=== PATIENT | female | born 1990 | race Caucasian/White ===

== ENCOUNTER 2016-09-11 14:08 | Emergency (ER) | payer OTHER ==
[~2016-09-11] VITALS: Ht 160 cm; Wt 108.1 kg
[~2016-09-11 14:08] MED LIST: MXLUNK
[2016-09-11 14:17] VITALS: Ht 160 cm; Wt 108.1 kg
[2016-09-11] MEDS ORDERED: AMOX875T PO (15:22)
[2016-09-11 15:41] VITALS: BP 110/80; PULSE 72; TEMP 36.8; O2SAT 98
--- NOTE | 2016-09-11 16:00 | EMERGENCY ROOM VISIT NOTE ---
History First contact with patient: 15:00 Chief Complaint: FEVER Stated Complaint: FEVER, SORETHROAT, COUGH-11 WKS. History of Present Illness The patient is a 26 year old female who presents to the Emergency Room with complaints of persistent productive cough, sore throat and fever. The patient reports that she developed a cold 2 weeks ago. She had sinus congestion and runny nose at that time. The symptoms have improved, but the cough has persisted and now worsened. The patient does report a history of frequent bronchitis. She denies history of seasonal allergies or asthma. She denies tobacco use. The patient is currently 11 weeks . She moved to the area in April, and has applied for medical assistance. She currently does not have a PCP. She has [facility]. She denies any chest pain or shortness of breath. Review of Systems 10 system review was performed and was negative except for pertinent positives and negatives as indicated in history of present illness Social History Smoking Status: Never Smoker Current/Historical Medications Scheduled Amoxicillin & Pot Clavulanate (Augmentin 875-125 mg), 1 TAB PO BID Allergies Coded Allergies: Pertussis Vaccine (Unverified Allergy, Mild, "high fever", 09/11/16) Physical Exam Vital Signs Date Time Temp Pulse Resp B/P (MAP) Pulse Ox O2 Delivery O2 Flow Rate FiO2 09/11/16 15:41 36.8 72 18 110/80 98 09/11/16 14:17 36.8 87 18 148/84 100 Room Air Pain Rating (0-10): 0 Physical Exam CONSTITUTIONAL: Healthy and well nourished. Patient does not appear in any acute distress. She had no cough during my exam. HEENT: Normocephalic, atraumatic. Pupils equal, round and reactive. Ears and nares are clear with no evidence for middle ear effusion or air-fluid levels. Bony landmarks and light reflex are present bilaterally. No rhinorrhea. OROPHARYNX: No tonsillar hypertrophy, exudates or postnasal drip. NECK: Full active range of motion without discomfort. RESPIRATORY: Clear to auscultation bilaterally with no wheezing, crackles, rhonchi or stridor. CARDIOVASCULAR: Regular rate and rhythm with no murmurs, rubs or gallops. GASTROINTESTINAL: Bowel sounds present in all quadrants. Soft and nontender to palpation. MUSCULOSKELETAL: Full range of motion of all joints without discomfort. INTEGUMENTARY: No rash or other significant dermatologic conditions noted. NEUROLOGIC: No focal neurologic deficits noted. Medical Decision & Procedures ED Course Patient history and physical exam were performed. Nurse's notes were reviewed. Vital signs were reviewed. The patient is currently afebrile and not tachycardic. Blood pressure is slightly elevated at 148/84. O2 saturation is 100% on room air. The patient does not appear in any acute respiratory distress. Given that the patient has been sick for the past 2 weeks, and is now worsening with fever, I did elect to treat empirically with Augmentin antibiotics. I do not feel that radiation exposure is warranted at this time. She was encouraged to take Tylenol as needed for fever. I did encourage her to contact the medical assistance office to see if they can expedite her insurance approval. In the meantime, she was encouraged to follow-up with the [facility] office in [place] near where she lives. She is welcome to return to the emergency department for any progressively worsening symptoms. I also encouraged her to find a local FLESHING MACHINE OPERATOR as well for further management. The patient was happy with plan of care, and voiced understanding of all discharge instructions. Medical Decision Impression Primary Impression: Bronchitis Additional Impression: Departure Information Dispostion Home / Self-Care Condition GOOD Prescriptions Amoxicillin & Pot Clavulanate (Augmentin 875-125 mg) 1 Tab Tab 1 TAB PO BID for 10 Days, #20 TAB Prov: Michael Xie PA 09/11/16 Referrals Uriel Delcid M.D. Hardyk, Angela K., M.D. Forms HOME CARE DOCUMENTATION FORM, IMPORTANT VISIT INFORMATION Patient Instructions My [employer] Additional Instructions Complete all Augmentin antibiotics as prescribed. Tylenol as needed for pain or fever. Follow-up with [facility] (Dr. Delcid) if symptoms are not improving within the next week. Call the medical assistance office to see if they can expedite your authorization. Also suggest follow-up with FLESHING MACHINE OPERATOR (Dr. Abreu) for further predelivery management and planning. Problem Qualifiers Additional Impression: Weeks of gestation: 11 weeks Qualified Codes: Z3A.11 - 11 weeks gestation of
== END 2016-09-11 15:43 | disposition home or self-care (01) ==
LOC: C.EDB 14:10 → C.EDA 15:43
DX: O26.891 Other specified pregnancy related conditions, first trimester (principal); J40 Bronchitis, not specified as acute or chronic; Z88.8 Allergy status to other drugs, medicaments and biological substances

== ENCOUNTER 2016-09-23 11:34 | Emergency (ER) | payer OTHER ==
[~2016-09-23] VITALS: Ht 160 cm; Wt 106.0 kg
[2016-09-23 11:36] VITALS: TEMP 36.7; Ht 160 cm; Wt 106.0 kg
[2016-09-23] MEDS ORDERED: SODIUM CHLORIDE 0.9% 1000ML 1,000 ML IV STA (12:07)
[2016-09-23] MEDS ORDERED: METOCLOPRAMIDE HCL INJ 5 MG/ML 2 ML VIAL IV STA (12:27)
[2016-09-23] MEDS ORDERED: DiphenhydrAMINE HCL 50 MG/ML VIAL IV STA (12:27)
[2016-09-23 12:35] LABS: BASO % 0.2 %; BASO ABS # 0.02 K/uL (0-0.2); COMPLETE YES; EOS % 0.4 %; HEMATOCRIT 37.5 % (37-47); IG% 0.3 %; LYMPH % 11.3 %; LYMPH ABS # 1.28 K/uL (1.2-3.4); MEAN CELL VOLUME 83.9 fL (80-100); MEAN CORPUSCULAR HEMOGLOBIN 28.6 pg (25-34); MEAN CORPUSCULAR HGB CONC 34.1 g/dl (32-36); MEAN PLATELET VOLUME 9.2 fL (7.4-10.4); MONO % 2.9 %; NEUT % 84.9 %; PLATELET COUNT 334 K/uL (130-400); RED BLOOD COUNT 4.47 M/uL (4.2-5.4); WHITE BLOOD COUNT 11.28 K/uL (4.8-10.8)
[2016-09-23 12:42] LABS: URINE APPEARANCE CLEAR (CLEAR); URINE BILIRUBIN NEG (NEG); URINE COLOR YELLOW; URINE NITRITE NEG (NEG); URINE PH 6.5 (4.5-7.5); URINE SPECIFIC GRAVITY 1.016 (1.000-1.030); UROBILINOGEN NEG (NEG); ZZUR CULT IF INDIC CLEAN CATCH NO
[2016-09-23 12:46] LABS: BUN/CREATININE RATIO 11.5 (10-20); CALCIUM 8.4 mg/dl (8.5-10.1); CREATININE 0.59 mg/dl (0.60-1.20); POTASSIUM 3.7 mmol/L (3.5-5.1)
[2016-09-23 12:49] LABS: ALB/GLOB RATIO 0.8 (0.9-2)
[2016-09-23 12:49] LABS: MANUAL MICROSCOPIC REQUIRED? NO; REVIEW REQ? NO
--- NOTE | 2016-09-23 12:56 | EMERGENCY ROOM VISIT NOTE ---
History First contact with patient: 11:56 Chief Complaint: HEADACHE Stated Complaint: VOMITING, LIGHTHEADED, MIGRAINE History of Present Illness The patient is a 26 year old female who presents to the Emergency Room with complaints of migraine. The patient reports a history of migraines for approximately the last 10 years. She has been evaluated for them in the past. She typically would take Maxalt but has been told to discontinue the Maxalt because she is . She is approximately 12 weeks . She reports increasing frequency of the migraines. She states that usually the migraine would resolve in 24 hours but this has persisted for 48 hours. She rates her discomfort a 7/10. The patient was seen here a few weeks ago for bronchitis and was treated with Augmentin. She states those symptoms have completely resolved. She denies any fever. She denies any neck stiffness but reports some neck discomfort which is typical with her migraines. She denies any pain in her chest or trouble breathing. She denies any abdominal pain, cramping, vaginal bleeding or vaginal discharge. She denies any dizziness, weakness, numbness or tingling in the extremities. The patient states this feels very typical of her migraines. The patient has had a ultrasound at approximately 8 weeks. She [facility]ACH[facility]PER[facility]. Review of Systems A 10 system review of systems was completed with positives and pertinent negatives listed in the HPI. Past Medical/Surgical History Medical Problems: (1) Migraine Social History Smoking Status: Never Smoker Housing Status: lives with family Current/Historical Medications Scheduled Ondasetron Odt (Zofran Odt), 4 MG SL Q6H Scheduled PRN Acetamin/Butalbital/Caffeine (Fioricet), 1 TAB PO Q4H PRN for Migraine Allergies Coded Allergies: Pertussis Vaccine (Unverified Allergy, Mild, "high fever", 09/23/16) Physical Exam Vital Signs Date Time Temp Pulse Resp B/P (MAP) Pulse Ox O2 Delivery O2 Flow Rate FiO2 09/23/16 14:05 88 16 118/76 98 09/23/16 13:06 84 16 106/61 96 Room Air 09/23/16 11:36 36.7 106 16 121/69 97 Physical Exam VITALS: Vitals are noted on the nurse's note and reviewed by myself. Vital signs stable. The patient is afebrile. GENERAL: This is a 26-year-old female, in no acute distress, nondiaphoretic, well-developed well-nourished. SKIN: The skin was without rashes, erythema, edema, or bruising. There is no tenting of the skin. Capillary reflex less than 2 seconds. HEAD: Normocephalic atraumatic. EARS: External auditory canals clear, tympanic membranes pearly luna without erythema or effusion bilaterally. EYES: Pupils equal round and reactive to light and accommodation. Conjunctivae without injection, sclerae without icterus. Extraocular movements intact. NOSE: Patent, turbinates without inflammation or discharge. No sinus tenderness. MOUTH: Mucous membranes moist. Tonsils are not enlarged. Pharynx without erythema or exudate. Uvula midline. Airway patent. Tongue does not deviate. NECK: Supple without nuchal rigidity. No lymphadenopathy. No thyromegaly. Cervical spine is nontender. No JVD. HEART: Regular rate and rhythm without murmurs gallops or rubs. LUNGS: Clear to auscultation bilaterally without wheezes, rales or retractions or accessory muscle use. ABDOMEN: Positive bowel sounds x 4. Soft, nontender, without masses or organomegaly. MUSCULOSKELETAL: No muscle atrophy, erythema, or edema noted. Full range of motion without joint tenderness in all extremities. No tenderness to palpation. Normal gait. Strength 5/5 throughout. NEURO: Patient was alert and oriented to person place and time. Cranial nerves II through XII grossly intact. Negative pronator drift. No focal neurological deficits. Medical Decision & Procedures Laboratory Results 09/23/16 12:18 Red Blood Count 4.47, Mean Corpuscular Volume 83.9, Mean Corpuscular Hemoglobin 28.6, Mean Corpuscular Hemoglobin Concent 34.1, Mean Platelet Volume 9.2, Neutrophils (%) (Auto) 84.9, Lymphocytes (%) (Auto) 11.3, Monocytes (%) (Auto) 2.9, Eosinophils (%) (Auto) 0.4, Basophils (%) (Auto) 0.2, Neutrophils # (Auto) 9.58, Lymphocytes # (Auto) 1.28, Monocytes # (Auto) 0.33, Eosinophils # (Auto) 0.04, Basophils # (Auto) 0.02 09/23/16 12:18 Test 09/23/16 12:18 09/23/16 12:30 White Blood Count 11.28 K/uL (4.8-10.8) Red Blood Count 4.47 M/uL (4.2-5.4) Hemoglobin 12.8 g/dL (12.0-16.0) Hematocrit 37.5 % (37-47) Mean Corpuscular Volume 83.9 fL (80-100) Mean Corpuscular Hemoglobin 28.6 pg (25-34) Mean Corpuscular Hemoglobin Concent 34.1 g/dl (32-36) Platelet Count 334 K/uL (130-400) Mean Platelet Volume 9.2 fL (7.4-10.4) Neutrophils (%) (Auto) 84.9 % Lymphocytes (%) (Auto) 11.3 % Monocytes (%) (Auto) 2.9 % Eosinophils (%) (Auto) 0.4 % Basophils (%) (Auto) 0.2 % Neutrophils # (Auto) 9.58 K/uL (1.4-6.5) Lymphocytes # (Auto) 1.28 K/uL (1.2-3.4) Monocytes # (Auto) 0.33 K/uL (0.11-0.59) Eosinophils # (Auto) 0.04 K/uL (0-0.5) Basophils # (Auto) 0.02 K/uL (0-0.2) RDW Standard Deviation 40.5 fL (36.4-46.3) RDW Coefficient of Variation 13.4 % (11.5-14.5) Immature Granulocyte % (Auto) 0.3 % Immature Granulocyte # (Auto) 0.03 K/uL (0.00-0.02) Anion Gap 8.0 mmol/L (3-11) Est Creatinine Clear Calc Drug Dose 169.9 ml/min Estimated GFR () 147.6 Estimated GFR (Non- 127.4 BUN/Creatinine Ratio 11.5 (10-20) Calcium Level 8.4 mg/dl (8.5-10.1) Total Bilirubin 0.6 mg/dl (0.2-1) Aspartate Amino Transf (AST/SGOT) 17 U/L (15-37) Alanine Aminotransferase (ALT/SGPT) 27 U/L (12-78) Alkaline Phosphatase 70 U/L (45-117) Total Protein 7.2 gm/dl (6.4-8.2) Albumin 3.2 gm/dl (3.4-5.0) Globulin 4.0 gm/dl (2.5-4.0) Albumin/Globulin Ratio 0.8 (0.9-2) Urine Color YELLOW Urine Appearance CLEAR (CLEAR) Urine pH 6.5 (4.5-7.5) Urine Specific Allison 1.016 (1.000-1.030) Urine Protein NEG (NEG) Urine Glucose (UA) NEG (NEG) Urine Ketones 1+ (NEG) Urine Occult Blood NEG (NEG) Urine Nitrite NEG (NEG) Urine Bilirubin NEG (NEG) Urine Urobilinogen NEG (NEG) Urine Leukocyte Esterase NEG (NEG) Medications Administered Medications (Trade) Dose Ordered Sig/Armani Route Start Time Stop Time Status Last Admin Dose Admin Sodium Chloride 1,000 ml @ 999 mls/hr Q1H1M STAT IV 09/23/16 12:07 09/23/16 13:07 DC 09/23/16 12:22 999 MLS/HR Metoclopramide HCl (Reglan Inj) 10 mg NOW STAT IV 09/23/16 12:27 09/23/16 12:29 DC 09/23/16 12:36 10 MG Diphenhydramine HCl (Benadryl Inj) 25 mg NOW STAT IV 09/23/16 12:27 09/23/16 12:29 DC 09/23/16 12:36 25 MG Acetaminophen/ Butalbital/ Caffeine (Fioricet Tab) 1 tab NOW STAT PO 09/23/16 13:00 09/23/16 13:01 DC 09/23/16 13:05 1 TAB ED Course The patient was seen and examined. Previous visits were reviewed. The patient does not have a fever. She has a minimal leukocytosis of 11.28. She does not have any significant electrolyte abnormality. Urinalysis reveals 1+ ketones but no evidence for urinary tract infection or hematuria. The patient was given 1 L normal saline IV She was given 25 mg IV Benadryl and 10 mg IV Reglan. Her nausea improved but the headache persisted. She was then given 1 oral Fioricet with marked improvement in her pain. She was feeling well enough to be discharged home. The patient presents to the emergency department with a migraine headache. She states that this is very typical for her and feels consistent with her previous migraines. She is afebrile. She does not have any nuchal rigidity or meningismus to suggest meningitis. She was feeling much better with the above treatment. She was given prescription for Zofran and a very small prescription for Fioricet. She should follow up with neurology and her family doctor and OB/ PRINCIPAL IOS DEVELOPER. She does seem to be having increasing frequency of her migraines with the . She should return to the ER with any worsening symptoms. The case was discussed with Dr. Rubi who agrees with the assessment and treatment plan. I also discussed the choice of medications with the ED pharmacist. Medication Reconciliation: I attest that I have personally reviewed the patient' s current medication list. Blood pressure screening: The patient was found to have normal blood pressure on screening and does not require follow-up Medical Decision The differential diagnosis includes: head or neck trauma, cerebrovascular disorders, intracranial lesions, infection,transient ischemic attack (TIA), CVA , seizure, syncope, intracranial mass, intracranial bleeding and vestibular disorders, among others Impression Primary Impression: Migraine Additional Impression: Departure Information Dispostion Home / Self-Care Condition GOOD Prescriptions Acetamin/Butalbital/Caffeine (FIORICET) 1 Ea Tab 1 TAB PO Q4H Y for Migraine, #18 TAB Prov: Juliana Flores PA-C 09/23/16 Ondasetron Odt (ZOFRAN ODT) 4 Mg Tab 4 MG SL Q6H for Nausea, #6 TAB Prov: Juliana Flores PA-C 09/23/16 Referrals No Doctor, Assigned (PCP) Rozina Abreu M.D. Schaefer, Kathleen A., M.D. Forms HOME CARE DOCUMENTATION FORM, IMPORTANT VISIT INFORMATION, Work Instructions Return To Work: 2 days Patient Instructions ED Headache Migraine, My [facility] 10sec Additional Instructions Rest Zofran as prescribed, as needed for nausea Fioricet as prescribed as needed for migraine. Do not take the Fioricet more than 5 days per month Return with fevers or worsening symptoms Otherwise, follow up with DISCHARGING MACHINE OPERATOR and Neurology for further evaluation and management Problem Qualifiers
[2016-09-23] MEDS ORDERED: BUTALBITAL/ACETAMIN/CAFFEINE TAB PO STA (13:00)
[2016-09-23] MEDS ORDERED: ONDA4TAB10 SL (13:57)
[2016-09-23] MEDS ORDERED: FRCT/ PO (13:57)
[2016-09-23 14:05] VITALS: BP 118/76; PULSE 88; O2SAT 98
== END 2016-09-23 14:12 | disposition home or self-care (01) ==
LOC: C.EDB 11:35 → C.EDA 14:12
DX: G43.909 Migraine, unspecified, not intractable, without status migrainosus (principal); Z3A.08 8 weeks gestation of pregnancy

== ENCOUNTER → 2016-10-13 | Outpatient (CLI) | payer OTHER ==
[~2016-10-13] MED LIST changes: +FRCT/ PO; -MXLUNK; +ONDA4TAB10 SL
[2016-10-13 15:00] LABS: URINE APPEARANCE TURBID (CLEAR); URINE BILIRUBIN NEG (NEG); URINE COLOR YELLOW; URINE EPITHELIAL CELL AUTO >30 /lpf (0-5); URINE NITRITE NEG (NEG); URINE SPECIFIC GRAVITY 1.031 (1.000-1.030); UROBILINOGEN NEG (NEG)
[2016-10-13 15:10] LABS: MANUAL MICROSCOPIC REQUIRED? NO; REVIEW REQ? YES
== END | disposition home or self-care (01) ==
LOC: C.LABSPEC 14:16
PROVIDERS: ATTEND Obstetrics & Gynecology
DX: Z34.00 Encounter for supervision of normal first pregnancy, unspecified trimester (principal)

== ENCOUNTER → 2016-10-21 | Outpatient (CLI) | payer OTHER ==
[2016-10-21 14:45] LABS: BASO % 0.2 %; BASO ABS # 0.02 K/uL (0-0.2); COMPLETE YES; EOS % 0.7 %; HEMATOCRIT 37.1 % (37-47); IG% 0.4 %; LYMPH % 15.6 %; LYMPH ABS # 1.76 K/uL (1.2-3.4); MEAN CORPUSCULAR HEMOGLOBIN 27.5 pg (25-34); MEAN CORPUSCULAR HGB CONC 33.2 g/dl (32-36); MEAN PLATELET VOLUME 9.6 fL (7.4-10.4); MONO % 3.8 %; NEUT % 79.3 %; PLATELET COUNT 373 K/uL (130-400); RED BLOOD COUNT 4.47 M/uL (4.2-5.4)
[2016-10-21 17:00] LABS: GTGD 50 Grams
== END | disposition home or self-care (01) ==
LOC: C.LAB1850 12:42
PROVIDERS: ATTEND Obstetrics & Gynecology
DX: Z34.00 Encounter for supervision of normal first pregnancy, unspecified trimester (principal)

== ENCOUNTER → 2016-10-21 | Outpatient (CLI) | payer OTHER ==
[2016-10-23 16:23] LABS: CHLAMYDIA TRACH RNA*** NOT DETECTED (NOT DETECTED); GC (NEIS GONORRHOEAE)RNA** NOT DETECTED (NOT DETECTED)
== END | disposition home or self-care (01) ==
LOC: C.LABSPEC 15:50
PROVIDERS: ATTEND Obstetrics & Gynecology
DX: Z34.00 Encounter for supervision of normal first pregnancy, unspecified trimester (principal)

== ENCOUNTER → 2016-12-09 | Outpatient (CLI) | payer OTHER ==
[2016-12-12 12:10] LABS: HERPES SIMPLEX CULT SOURCE GENITAL-VULVAR; HERPES SIMPLEX VIRUS CULT ISOLATED (NOT ISOLATED)
== END | disposition home or self-care (01) ==
LOC: C.LABSPEC 13:57
PROVIDERS: ATTEND Obstetrics & Gynecology
DX: A60.00 Herpesviral infection of urogenital system, unspecified (principal)

== ENCOUNTER → 2016-12-09 | Outpatient (CLI) | payer OTHER ==
[2016-12-16 21:35] LABS: HERPES SIMPLEX AB IGG-2 < 0.90 INDEX (< 0.90); HSV1 AB IGM Negative (Negative); HSV2 AB IGM Negative (Negative)
== END | disposition home or self-care (01) ==
LOC: C.LAB1850 10:46
PROVIDERS: ATTEND Obstetrics & Gynecology
DX: A60.00 Herpesviral infection of urogenital system, unspecified (principal)

== ENCOUNTER → 2017-01-06 | Outpatient (CLI) | payer OTHER ==
[2017-01-06 12:00] LABS: URINE APPEARANCE CLEAR (CLEAR); URINE BILIRUBIN NEG (NEG); URINE COLOR DK YELLOW; URINE EPITHELIAL CELL AUTO >30 /lpf (0-5); URINE NITRITE NEG (NEG); URINE PH 6.5 (4.5-7.5); URINE SPECIFIC GRAVITY 1.028 (1.000-1.030); UROBILINOGEN NEG (NEG)
[2017-01-06 12:08] LABS: MANUAL MICROSCOPIC REQUIRED? NO; REVIEW REQ? NO
[2017-01-06 12:24] LABS: HEMATOCRIT 33.9 % (37-47)
[2017-01-06 14:04] LABS: GTGD 50 Grams
== END | disposition home or self-care (01) ==
LOC: C.LAB1850 10:14
PROVIDERS: ATTEND Obstetrics & Gynecology
DX: Z34.02 Encounter for supervision of normal first pregnancy, second trimester (principal)

== ENCOUNTER → 2017-03-05 | Outpatient (CLI) | payer OTHER | END | disposition home or self-care (01) | LOC: C.LABSPEC 13:28 | PROVIDERS: ATTEND Obstetrics & Gynecology | DX: Z34.03 Encounter for supervision of normal first pregnancy, third trimester (principal) ==

== ENCOUNTER 2017-03-30 20:57 | Outpatient (CLI) | payer OTHER ==
[~2017-03-30] VITALS: Ht 160 cm; Wt 115.0 kg
[2017-03-30] MEDS ORDERED: RANI150T3 PO (21:46)
[2017-03-30] MEDS ORDERED: PRENTAB26 PO (21:46)
[2017-03-30] MEDS ORDERED: ONDA4TAB46 PO (21:46)
[2017-03-30] MEDS ORDERED: VALA500T60 PO (21:46)
[2017-03-30 21:47] VITALS: Ht 160 cm; Wt 115.0 kg
--- NOTE | 2017-04-08 11:39 | EDITING REQUIRED CODING QUERY ---
DIAGNOSIS NEEDED To promote full compliance with coding requirements relating to patient care, physician participation is requested in all cases of road consultant uncertainty. Please assist us with the question(s) below: Coding Question: The patient received care in labor and delivery on 03/30/17 as noted within the record. Please document the diagnosis that is being addressed by the medication/treatment. Provider Response: DIAGNOSIS: Irregular contractions WEEKS OF GESTATION: 39 weeks Thank you for your assistance, Naomy Scott - Pensionholder Information Clerk
== END 2017-03-30 23:55 | disposition home or self-care (01) ==
LOC: C.LD 20:57 → C.OPB 20:57
PROVIDERS: ATTEND Obstetrics & Gynecology
DX: O62.9 Abnormality of forces of labor, unspecified (principal); Z3A.39 39 weeks gestation of pregnancy

== ENCOUNTER 2017-04-01 17:05 | Inpatient (IN) | payer OTHER ==
[~2017-04-01] VITALS: Ht 160 cm; Wt 114.5 kg
[~2017-04-01 17:05] MED LIST changes: -FRCT/ PO; -ONDA4TAB10 SL; +ONDA4TAB46 PO; +PRENTAB26 PO; +RANI150T3 PO; +VALA500T60 PO
[2017-04-01] MEDS ORDERED: LACTATED RINGER'S 1000ML 1,000 ML IV PRN (17:42)
[2017-04-01] MEDS ORDERED: PENICILLIN G POTASSIUM IV 6 MU in DEXTROSE 5% 250ML 250 ML IV ONE (18:00)
[2017-04-01] MEDS: LACTATED RINGER'S 1000ML 1,000 ML IV SCH ×2 (18:07→21:09)
[2017-04-01 18:10] LABS: HEMATOCRIT 35.4 % (37-47); HEMOGLOBIN 12.1 g/dL (12.0-16.0); MEAN CELL VOLUME 83.3 fL (80-100); MEAN CORPUSCULAR HEMOGLOBIN 28.5 pg (25-34); MEAN CORPUSCULAR HGB CONC 34.2 g/dl (32-36); MEAN PLATELET VOLUME 10.8 fL (7.4-10.4); PLATELET COUNT 386 K/uL (130-400); RED CELL DISTRIBUTION WIDTH CV 13.8 % (11.5-14.5); RED CELL DISTRIBUTION WIDTH SD 41.7 fL (36.4-46.3); WHITE BLOOD COUNT 21.06 K/uL (4.8-10.8)
[2017-04-01 18:39] VITALS: Ht 160 cm; Wt 114.5 kg
[2017-04-01] MEDS ORDERED: BUPIVACAINE 0.25% 30 ML VIAL ONE (19:04)
[2017-04-01] MEDS ORDERED: FENTANYL CITRATE INJ 50 MCG/1 ML 2 ML VIAL ONE (19:04)
[2017-04-01] MEDS ORDERED: FENTANYL 2MCG/ML ROPIV 1.25MG/ML 100ML BAG EPI ONE (19:04)
[2017-04-01] MEDS ORDERED: EpHEDrine SULFATE INJ 50 MG/ML AMP ONE (19:04)
[2017-04-01] MEDS ORDERED: NALOXONE HCL INJ 1 MG in SODIUM CHLORIDE 0.9% 1000ML 1,000 ML IV PRN (20:08)
[2017-04-01] MEDS ORDERED: LACTATED RINGER'S 1000ML 500 ML IV PRN ×2 (20:08→20:45)
[2017-04-01] MEDS ORDERED: NALOXONE HCL INJ 0.4 MG/1 ML VIAL/CARP IV PRN (20:15)
[2017-04-01] MEDS ORDERED: DiphenhydrAMINE HCL 50 MG/ML VIAL IV PRN (20:15)
[2017-04-01] MEDS ORDERED: NALBUPHINE HCL INJ 10 MG/ML 1ML AMP IV PRN (20:15)
[2017-04-01] MEDS: RANITIDINE IV 50 MG in DEXTROSE 5% 100ML 100 ML IV SCH (20:31)
[2017-04-01] MEDS: EpHEDrine SULFATE INJ 50 MG/ML AMP IV PRN ×2 (20:35→20:37)
[2017-04-01] MEDS ORDERED: OXYTOCIN 30 UNITS/500ML NSS IV PRN (20:45)
[2017-04-01] MEDS ORDERED: INFLUENZA ADMINISTRATION CHARGE ONE (21:15)
[2017-04-01] MEDS ORDERED: INFLUENZA VIRUS QUAD VACCINE 0.5 ML SYR IM. ONE (21:15)
[2017-04-01] MEDS: PENICILLIN G POTASSIUM IV 3 MU in DEXTROSE 5% 100ML 100 ML IV PRN (22:14)
[2017-04-01] MEDS ORDERED: CALCIUM CARBONATE 500 MG CHEWABLE PO PRN (22:15)
[2017-04-01] MEDS ORDERED: ONDANSETRON INJ 2 MG/ML 2 ML VIAL ONE (23:52)
[2017-04-02] MEDS ORDERED: ONDANSETRON INJ 2 MG/ML 2 ML VIAL IV PRN
[2017-04-02] MEDS: FENTANYL 2MCG/ML ROPIV 1.25MG/ML 100ML BAG EPI PRN ×4 (01:38→07:09)
[2017-04-02] MEDS: LACTATED RINGER'S 1000ML 1,000 ML IV SCH (01:57)
[2017-04-02] MEDS: PENICILLIN G POTASSIUM IV 3 MU in DEXTROSE 5% 100ML 100 ML IV PRN ×2 (02:06→06:11)
[2017-04-02] MEDS: RANITIDINE IV 50 MG in DEXTROSE 5% 100ML 100 ML IV SCH (04:28)
[2017-04-02] MEDS ORDERED: FENTANYL CITRATE INJ 50 MCG/1 ML 2 ML VIAL ONE (06:11)
[2017-04-02] MEDS ORDERED: ACETAMINOPHEN/CODEINE 300/30MG TAB PO PRN ×2 (08:15)
[2017-04-02] MEDS ORDERED: HYDROCORTISONE ACETATE 25 MG SUPP PR PRN (08:15)
[2017-04-02] MEDS ORDERED: ACETAMINOPHEN 325 MG TAB PO PRN (08:15)
[2017-04-02] MEDS ORDERED: OXYTOCIN 30 UNITS/500ML NSS IV PRN (08:15)
[2017-04-02] MEDS ORDERED: BENZOCAINE 20% AER SPR 82.5 GM CAN EXT PRN (08:15)
[2017-04-02] MEDS ORDERED: OXYCODONE/ACETAMINOPHEN 5-325 TAB PO PRN (08:15)
[2017-04-02] MEDS ORDERED: LANOLIN OINT EXT PRN (08:15)
[2017-04-02] MEDS ORDERED: SUPERCREAM 0.870 % 15GM JAR EXT PRN (08:15)
--- NOTE | 2017-04-02 08:28 | DELIVERY SUMMARY ---
DATE OF OPERATION: 04/02/2017 Sasha presented in labor at 4 cm. She received an epidural and ARM was then performed. She did progress to 8 cm however then things stalled out. We placed an IUPC and contractions were frequent enough but not strong enough so we started Pitocin. Estimated weight 7-8 pounds. heart rate was category 1 but had several episodes of tachycardia. She reached fully dilated, baby labored down, and then she pushed for a mere 30 minutes delivery a baby in left occiput anterior position. Thin meconium. Mouth and then nares suctioned. No nuchal cord. Baby delivered by gentle traction. No excessive force used. Live, vigorous infant. Cord clamped and cut. Cord gases obtained. Cord blood obtained. Placenta removed with gentle traction. Small second degree tear repaired with 3-0 Vicryl. Sponge and instrument counts correct. IV Pitocin started after delivery of the placenta. Hemostasis improved. Estimated blood loss 300 mL. I attest to the content of the Intraoperative Record and any orders documented therein. Any exception s are noted below.
--- NOTE | 2017-04-02 08:42 | Anesthesia Procedure Note ---
Anesthesia Epidural Removal Nt Date & Time Apr 02, 2017 at 08:42 Vital Signs Pain Intensity: 0.0 Notes Mental Status: alert / awake / arousable, participated in evaluation Nausea / Vomiting: adequately controlled Pain: adequately controlled Airway Patency, RR, SpO2: stable & adequate BP & HR: stable & adequate Hydration State: stable & adequate Neuraxial Anesthesia: was administered Anesthetic Complications: no major complications apparent, pt satisfied with anesthetic care Epidural: removed without complications, with tip intact
[2017-04-02] MEDS: IBUPROFEN 600 MG TAB PO PRN ×2 (10:29→20:12)
[2017-04-02 10:50] VITALS: BP 110/56; PULSE 107; TEMP 36.8
[2017-04-02 11:31] VITALS: BP 92/49; PULSE 90; TEMP 36.9; O2SAT 97
[2017-04-02 12:30] VITALS: BP 101/64
[2017-04-02 15:15] VITALS: BP 101/56; PULSE 90; TEMP 36.7; O2SAT 96
[2017-04-02] MEDS: RANITIDINE HCL 150 MG TAB PO SCH (20:11)
[2017-04-02] MEDS: DOCUSATE SODIUM 100 MG CAP PO SCH (20:11)
[2017-04-02 20:13] VITALS: BP 124/76; PULSE 99; TEMP 36.4; O2SAT 98
[2017-04-02 23:40] VITALS: BP 97/55; PULSE 93; TEMP 36.9; O2SAT 100
[2017-04-03] MEDS: IBUPROFEN 600 MG TAB PO PRN ×4 (04:32→23:58)
[2017-04-03 05:00] VITALS: BP 114/67; PULSE 90; TEMP 36.5
--- NOTE | 2017-04-03 06:10 | OB/GYN Progress Note ---
SET UP MACHINIST Progress Note Date of Service Apr 03, 2017. Subjective conversation w/ patient, physical exam, chart review, lab review Ambulation: ambulating normally Voiding: no voiding problems Passing Gas: Yes Diet Tolerance: Regular Diet Lochia: Moderate Feeding Type: Breast Feeding Pain: moderate pelvic pain Review of Systems Constitutional: No fever, No chills, No sweats Respiratory: No cough, No sputum Cardiac: No chest pain, No edema, No palpitations Abdomen: No pain, No nausea, No vomiting, No diarrhea Female : + dysuria Objective Vital Signs Date Time Temp Pulse Resp B/P (MAP) Pulse Ox O2 Delivery O2 Flow Rate FiO2 04/03/17 05:00 36.5 90 18 114/67 (83) Room Air 04/02/17 23:40 36.9 93 20 97/55 (69) Room Air 04/02/17 23:40 100 Room Air 04/02/17 20:13 36.4 99 18 124/76 (92) 98 Room Air 04/02/17 15:25 Room Air 04/02/17 15:15 36.7 90 20 101/56 (71) 96 Room Air 04/02/17 12:30 101/64 (76) 04/02/17 11:31 36.9 90 16 92/49 (63) 97 Room Air 04/02/17 10:50 36.8 107 16 110/56 (74) Room Air 04/02/17 10:50 Room Air Physical Exam General Appearance: WELL-APPEARING, WD/WN, NO APPARENT DISTRESS Respiratory/Chest: chest non-tender, lungs clear, normal breath sounds, no respiratory distress, no accessory muscle use Cardiovascular: regular rate, rhythm, no edema, no murmur Abdomen: normal bowel sounds, soft Fundus: Firm Extremities: no pedal edema, no calf tenderness Laboratory Results Last 24 Hours Test 04/03/17 04:44 Assessment and Plan Post- Day Number: 1 Continue Routine Care: 27 yo female G1PO now 1 delivered vaginally on 06/03 8:00. Delivered at 40.1 wks gestation Pt is GBS+/O+/RI Vitals reviewed and WNL. Hgb 12.1 on admission, today's is pending. Pt describes moderate bleeding. Changes pad after urinating, does not soak pads. Continue routine post care; 1. Monitor lochia 2. Control pain; PRN Tylenol and ibuprofen 3. Encourage ambulation 4. Support Resident Physician Supervision Note: I was present with Dr. Villeda during the history and exam. I discussed the case with the resident and agree with the findings and plan as documented in the note. Any exceptions or clarifications are listed here: doing well. eating , voiding, ambulating. ff at level of umbilicus and to the right, pt has not voided this am. ext nt calves. ppd #1, routine care. breast feeding. Documented By: Mily Araujo
[2017-04-03 07:24] LABS: HEMATOCRIT 27.1 % (37-47)
[2017-04-03] MEDS: RANITIDINE HCL 150 MG TAB PO SCH ×3 (08:00→23:58)
[2017-04-03] MEDS: DOCUSATE SODIUM 100 MG CAP PO SCH ×2 (08:29→19:57)
[2017-04-03] MEDS: PRENATAL VITAMIN TAB PO SCH (08:30)
[2017-04-03 08:35] VITALS: BP 124/81; PULSE 95; TEMP 36.6; O2SAT 98
[2017-04-03 16:00] VITALS: BP 107/64; PULSE 89; TEMP 36.8; O2SAT 98
[2017-04-03] MEDS ORDERED: NURSING VERBAL MED ORDER ONE (16:00)
[2017-04-03] MEDS ORDERED: MAGNESIUM HYDROXIDE SUSP 30 ML UDC PO PRN (16:00)
[2017-04-03] MEDS ORDERED: BISACODYL 5 MG TABEC PO SCH (20:00)
--- NOTE | 2017-04-03 20:56 | Discharge Instructions ---
Discharge Instructions Date of Service Apr 03, 2017. Admission Reason for Admission: Check Labor Discharge Discharge Diagnosis / Problem: recovery from vaginal delivery Discharge Goals Goal(s): Routine recovery after delivery Medications Continue Dispensed Medications: supercream, dermaplast, tucks, lansinoh Activity Recommendations Activity Limitations: per Instructions/Follow-up section . Instructions / Follow-Up Instructions / Follow-Up ACTIVITY RECOMMENDATIONS: * Gradual return to full activity over the next 2-3 weeks. * No lifting - nothing heavier than baby over the next 2-3 weeks. * Do not engage in vigorous exercise, sexual activity or sports until cleared by your physician. * Do not drive or operate any motorized equipment until cleared by your physician. * You may shower/bathe daily. MEDICATIONS: For discomfort or pain, you may use Acetaminophen (Tylenol), Ibuprofen (Advil), or Naproxen (Aleve) following the package directions. For constipation you may use Colace following the package directions. BREAST CARE: If you are not breast feeding: * Wear a supportive bra 24 hours a day for one to two weeks. * Avoid stimulating your breasts and nipples as much as possible during the first few weeks after delivery. * When taking a shower, have the warm water hit your back, not breasts. * When your breasts feel full, apply ice packs. Usually three to four times a day helps ease the discomfort. * Take a mild pain medication (Tylenol / Motrin) when you are uncomfortable. If breast feeding: * Use breast milk to lubricate nipples. Lansinoh cream may be used for sore nipples. You do not need to remove cream prior to breast feeding. If using a different brand of cream, check the label for directions regarding removal of cream prior to nursing. * Wear a supportive bra. * If having problems with breasts or breast feeding, call a oracle fusion consultant or your health care provider. EPISIOTOMY CARE: After delivery, if you have an episiotomy (stitches), the following steps will ease discomfort and aid healing. * For the first 24 hours after delivery, place ice packs next to your episiotomy to help reduce swelling. * After the first 24 hour-period, sitz baths, either portable or in the tub, are suggested. A shower with a shower arm sprayed over the episiotomy may be comforting. * La care should be done after each voiding and bowel movement. Squirt warm water from a plastic bottle over the perineum (region of the body between the anus and urinary opening) and pat dry. * Use Dermoplast to ease discomfort. Shake container. [place] directly over the episiotomy. Place a Tucks on a clean sanitary pad next to your episiotomy. SPECIAL CARE INSTRUCTIONS: When you are discharged from the hospital, it is important for you to follow the instructions listed below: * During the first week at home, you should be able to care for yourself and your baby. In addition, the usual light household activities are encouraged. * Limit your activities to the way you feel. Do not try to clean the house or move furniture. Be sensible. * If you actively engage in sports and have done so up until the time of your delivery, you may resume these activities as soon as you feel able. This may take up to one month or even longer. Use good judgment. * Continue to take your vitamins for at least six weeks after the of your baby. * Your diet need not be limited unless you were on a special diet before your delivery. Breast-feeding mothers need around 2500 calories per day and at least 64-80 ounces of fluid per day (8 to 10 glasses). * You should eat foods from the four major food groups. Crash diets or fad diets are to be avoided. Eating lean meats, fresh fruits and vegetables, low-fat dairy products, high fiber foods and a regular exercise program, will help you get back to your pre- weight without putting your health at risk. * Constipation is sometimes a problem after delivery. Take a mild laxative as needed. If breast feeding, Milk of Magnesia is acceptable to use. You may use a suppository or Fleets enema if no episiotomy. * A daily shower or tub bath is suggested. Be sure to thoroughly and gently dry the perineum. * A bloody vaginal discharge will usually continue until around four weeks post . A small amount of bleeding may continue for as long as six weeks. Vaginal discharge changes from the bright red bleeding after delivery to pink then brownish and finally yellowish-pink before becoming white and disappearing. * Bleeding may increase with activity. Your first period may come in 4-8 weeks. If you are breast feeding, your period may be delayed even longer. * [place] (sex) can begin whenever both you and your partner feel comfortable and do not have any form of genital infection. It is recommended that you wait at least six weeks for internal and external healing to occur. If you have questions, please talk to your health care practitioner. A condom should be used to prevent infection and . * Foreplay, gentle intercourse and lubrication is very important the first several times to prevent pain. A water-based lubricant such as K-Y jelly or Astroglide may be used. * If you have RH negative blood and your baby is RH positive, you will receive RHOGAM by injection prior to discharge. The nurse will give you a card to keep with you that has the date and place that you received RHOGAM after delivery. * During your care, you had a Rubella screen done to check for the presence of rubella antibodies in your blood. If your test was negative, you will receive a Rubella vaccine prior to discharge. This vaccine may cause a fever, soreness at the injection site and flu-like symptoms. If these symptoms persist, notify your health care practitioner. is not advised for one month after a Rubella vaccine. * Verbalizes understanding of car seat law as reviewed with patient nursing. * Car Seat hand-out given and reviewed with patient by nursing. * Shaken baby information reviewed with patient by nursing. Call you doctor if: * Heavy bleeding (saturating several pads an hour) or passing clots the size of your fist. * A fever >101 degrees F (38.3 degrees C) on two occasions four hours apart and /or chills. * Unusual pain in the pelvic or vaginal areas. * "Baby Blues" lasting longer than two weeks. If you have any questions or concerns, call your health care practitioner at . FOLLOW UP VISIT: * Please call the office at to schedule a 6 week examination. It is important you keep this appointment. It is important for you to make arrangements for either yearly or twice yearly check-ups thereafter. Current Hospital Diet Patient's current hospital diet: Regular OB Diet Discharge Diet Recommended Diet: Regular OB Diet Pending Studies Studies pending at discharge: no Medical Emergencies . Who to Call and When: Medical Emergencies: If at any time you feel your situation is an emergency, please call [phone] immediately. . Non-Emergent Contact Non-Emergency issues call your: Sewing Machine Repairer Helper . . "Provider Documentation" section prepared by Luis Enrique Villeda. . VTE Core Measure Inpt VTE Proph given/why not?: Treatment not indicated
[2017-04-03 23:50] VITALS: BP 102/67; PULSE 97; TEMP 36.9; O2SAT 98
--- NOTE | 2017-04-04 06:57 | OB/GYN Progress Note ---
[facility] Progress Note Date of Service Apr 04, 2017. Subjective conversation w/ patient, physical exam, chart review, lab review Ambulation: ambulating normally Voiding: no voiding problems Passing Gas: Yes Diet Tolerance: Regular Diet Lochia: Small Feeding Type: Breast Feeding Review of Systems Constitutional: No fever, No chills, No sweats Respiratory: No cough, No shortness of breath Cardiac: No chest pain, No palpitations Abdomen: No pain, No nausea, No vomiting Female : No dysuria Objective Vital Signs Date Time Temp Pulse Resp B/P (MAP) Pulse Ox O2 Delivery O2 Flow Rate FiO2 04/03/17 23:50 98 Room Air 04/03/17 23:50 36.9 97 18 102/67 (79) 98 Room Air 04/03/17 17:00 Room Air 04/03/17 16:00 36.8 89 18 107/64 (78) 98 Room Air 04/03/17 08:35 36.6 95 18 124/81 (95) 98 Room Air 04/03/17 08:35 98 Room Air Physical Exam General Appearance: WELL-APPEARING, WD/WN, NO APPARENT DISTRESS Respiratory/Chest: chest non-tender, lungs clear, normal breath sounds Cardiovascular: regular rate, rhythm, no murmur Abdomen: normal bowel sounds, non tender Fundus: Firm, Relation to Umbilicus (2 digit below ) Laboratory Results Last 24 Hours Test 04/04/17 04:44 Assessment and Plan Post- Day Number: 2 Continue Routine Care: 27 F now 1 delivered vaginally on 04/02 8:00 Born at 40.1 wks. Pt is GBS+/O+/RI Pt is doing well today Vitals reviewed, WNL overnight Discussed discharge and instructions with the patient; will follow up with the patient in 6 weeks in the clinic Resident Physician Supervision Note: I interviewed and examined the patient. Discussed with Dr. Villeda and agree with findings and plan as documented in the note. Any exceptions or clarifications are listed here: Doing well, plan d/c, instructions reviewed. Documented By: Rozina Abreu
[2017-04-04] MEDS ORDERED: BISACODYL 10 MG SUPP PR PRN (07:00)
[2017-04-04 07:28] LABS: HEMATOCRIT 27.2 % (37-47); HEMOGLOBIN 9.2 g/dL (12.0-16.0); MEAN CELL VOLUME 85.3 fL (80-100); MEAN CORPUSCULAR HEMOGLOBIN 28.8 pg (25-34); MEAN CORPUSCULAR HGB CONC 33.8 g/dl (32-36); PLATELET COUNT 281 K/uL (130-400); RED CELL DISTRIBUTION WIDTH CV 14.3 % (11.5-14.5); RED CELL DISTRIBUTION WIDTH SD 43.9 fL (36.4-46.3); WHITE BLOOD COUNT 13.84 K/uL (4.8-10.8)
[2017-04-04] MEDS: PRENATAL VITAMIN TAB PO SCH (07:50)
[2017-04-04] MEDS: DOCUSATE SODIUM 100 MG CAP PO SCH (07:50)
[2017-04-04] MEDS: IBUPROFEN 600 MG TAB PO PRN (07:51)
[2017-04-04] MEDS: RANITIDINE HCL 150 MG TAB PO SCH (07:52)
[2017-04-04 07:55] VITALS: BP 95/55; PULSE 80; TEMP 36.6; O2SAT 98
[2017-04-04 11:55] VITALS: BP_DIAS 55; PULSE 80; TEMP 36.6
--- NOTE | 2017-04-04 12:15 | NUR ---
Patient was discharged accompanied by infant daughter and . She rode to front door/car in w/c pushed by volunteer while holding buckled in car seat in her lap.
== END 2017-04-04 12:15 | disposition home or self-care (01) | DRG 775 ==
LOC: C.OPB 17:05 → C.LD 17:05 → C.OPB 17:43 → C.OBG 04-02 10:53
PROVIDERS: ADMIT Obstetrics & Gynecology; ATTEND Obstetrics & Gynecology
PROC: 10E0XZZ Delivery of Products of Conception, External Approach (ICD-10-PCS; principal; 2017-04-02)
PROC: 0KQM0ZZ Repair Perineum Muscle, Open Approach (ICD-10-PCS; principal; 2017-04-02)
DX: O76 Abnormality in fetal heart rate and rhythm complicating labor and delivery (principal); O77.0 Labor and delivery complicated by meconium in amniotic fluid; O70.1 Second degree perineal laceration during delivery; Z22.330 Carrier of Group B streptococcus; Z3A.40 40 weeks gestation of pregnancy; Z37.0 Single live birth

== ENCOUNTER 2018-10-01 02:44 | Inpatient (IN) ==
[2018-10-01] MEDS ORDERED: OXYTOCIN 30 UNITS/500 ML BAG IV PRN ×3 (03:23→09:36)
[2018-10-01] MEDS: LACTATED RINGER'S 1,000 ML IV PRN ×3 (03:39→07:13)
--- NOTE | 2018-10-01 03:47 | History & Physical Report ---
Date of Service October 01, 2018 Assessment & Plan (1) Normal labor: IUP at 39 weeks in active labor history of HSV- no recent outbreaks on Valtrex prophylaxis requesting epidural analgesia anticipate vaginal delivery Present on Admission?: Yes History of Present Illness Primary Care Provider: NO PCP Patient is a 28 yo EDC 10/07/18 who presents at 39 weeks with regular q 5 minute contractions. (-) SROM or bloody show. complicated by history of HSV currently on valtrex prophylaxis. no recent HSV outbreaks. GBS (-) Allergies Allergy/AdvReac Type Severity Reaction Status Date / Time Pertussis Vaccines Allergy Mild "high Verified 10/01/18 03:03 fever" blueberry Allergy Unknown HIVES Verified 10/01/18 03:03 Home Medications Home Medications Medication Instructions Recorded Confirmed Type vit no.[id number] 1 tab PO DAILY 04/13/18 04/13/18 History [ Vitamin] ranitidine HCl [Zantac] 150 mg PO BID 10/01/18 10/01/18 History valacyclovir [Valtrex] 500 mg PO DAILY 10/01/18 10/01/18 History Patient History Medical History Depression with anxiety no meds H/O wisdom tooth extraction at age 17 Spontaneous vaginal delivery [facility] 03/2017 Tonsillectomy planned at age 6 Migraine (Resolved) no meds Family History Other No pertinent family history Social History Preferred Language: [place] Communication Ability: Effective 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 Beliefs That Will Affect Care: None marital status: Current Living Situation: Spouse Current Living Situation Comment: house Other Information That Helps Us Care for You: No Feels Safe at Home: Yes Safety Concerns: Feels Safe At This Time Smoking Status: Never smoker Hx Alcohol Use: No Hx Substance Use: No Review of Systems All systems reviewed & are unremarkable except as noted in HPI & below Physical Exam Constitutional: WD/WN, vitals as above Respiratory: normal respiratory effort, lungs clear to auscultation Cardiovascular: RRR, no murmur, no edema Gastrointestinal (Abdomen): normal bowel sounds, soft, nontender, no hepatosplenomegaly Musculoskeletal: no cyanosis or clubbing, extremities motor strength 5/5 no calf tenderness Genitourinary: OB Exam Abdomen: + vertex and + regular contractions (every 3 minutes) Manual OB Exam: + cervical dilation 4 cm, + cervical effacement 80% and + station 0 OB Exam Monitor Tracing: + external FHT monitor used, + external uterine monitor used, + category I and + normal FHT variability Results & Data Vital Signs (Past 12 Hours) Vital Signs Temp Pulse Resp BP 10/01/18 03:05 36.6 C 65 20 120/71 10/01/18 02:57 36.6 C 65 20 120/71
[2018-10-01 04:05] LABS: Hematocrit (blood only) 34.4 % (37-47); Hemoglobin 11.6 g/dL (12.0-16.0); Mean Corpuscular Volume 80.8 fL (80-100); Mean Platelet Volume 10.5 fL (7.4-10.4); Platelet Count 350 K/uL (130-400); RDW Coefficient of Variation 14.1 % (11.5-14.5); RDW Standard Deviation 41.2 fL (36.4-46.3); Red Blood Count 4.26 M/uL (4.2-5.4); White Blood Count 15.23 K/uL (4.8-10.8)
[2018-10-01] MEDS ORDERED: fentaNYL citrate 100 MCG/2 ML VIAL ONE (04:06)
[2018-10-01] MEDS ORDERED: BUPIVACAINE 0.25% 30 ML VIAL ONE ×2 (04:06→07:58)
[2018-10-01] MEDS ORDERED: ePHEDrine sulfate 50 MG/ML AMP ONE (04:06)
[2018-10-01] MEDS ORDERED: fentaNYL 2MCG/ML ROPIV 1.25MG/ML 100 ML BAG EPI ONE (04:07)
[2018-10-01 04:10] LABS: Mean Corpuscular Hgb Conc 33.7 g/dL (32-36)
[2018-10-01] MEDS ORDERED: NALOXONE HCL 0.4 MG/1 ML VIAL/CARP IV PRN (05:11)
[2018-10-01] MEDS ORDERED: NALBUPHINE HCL INJ 10 MG/ML AMP IV PRN (05:11)
[2018-10-01] MEDS ORDERED: ePHEDrine sulfate 50 MG/ML AMP IV PRN (05:11)
[2018-10-01] MEDS ORDERED: ONDANSETRON INJ 2 MG/ML 2 ML VIAL IV PRN (05:11)
[2018-10-01] MEDS ORDERED: NALOXONE HCL 1 MG in SODIUM CHLORIDE 0.9% 1000ML 1,000 ML IV PRN (05:11)
[2018-10-01] MEDS ORDERED: DiphenhydrAMINE HCL 50 MG/ML VIAL IV PRN (05:11)
[2018-10-01] MEDS ORDERED: fentaNYL 2MCG/ML ROPIV 1.25MG/ML 100 ML BAG EPI PRN (05:11)
--- NOTE | 2018-10-01 05:17 | Anesthesiology Consultation ---
Date of Service October 01, 2018 Assessment & Plan Chart Review Chart Review: Patient NOT seen in Pre Admission Testing and Acceptable Risk for Labor Epidural Consults Requested none ASA ASA2 Proposed Anesthesia Anesthesia Type: Labor Epidural and CSE Risk / Benefits Reviewed With: PT / POA / Parent / Guardian, Accepts Plan and Informed Consent Obtained History Height/Weight Height: 5 ft 3 in Weight: 117.934 kg Allergies Allergy/AdvReac Type Severity Reaction Status Date / Time Pertussis Vaccines Allergy Mild "high Verified 10/01/18 03:03 fever" blueberry Allergy Unknown HIVES Verified 10/01/18 03:03 Medications Home Medications Medication Instructions Recorded Confirmed Last Taken vit no.[id number] 1 tab PO DAILY 04/13/18 04/13/18 09/30/18 12:00 [ Vitamin] ranitidine HCl [Zantac] 150 mg PO BID 10/01/18 10/01/18 09/30/18 12:00 valacyclovir [Valtrex] 500 mg PO DAILY 10/01/18 10/01/18 09/30/18 12:00 Active Medications Generic Name Dose Route Start Last Admin Trade Name Freq PRN Reason Stop Dose Admin Lactated Ringer's 1,000 mls @ 125 mls/hr 10/01/18 03:23 10/01/18 04:39 Lr IV 10/03/18 03:22 999 mls/hr .Q8H PRN Administration L&D Protocol Protocol NPO Date Last Intake of Fluids: 10/01/18 Time Last Intake of Fluids: 04:00 Date Last Intake of Solids: 09/30/18 Time Last Intake of Solids: 18:30 Past Medical History Medical History Depression with anxiety no meds GERD (gastroesophageal reflux disease) H/O wisdom tooth extraction at age 17 Spontaneous vaginal delivery [facility] 03/2017 Tonsillectomy planned at age 6 Migraine (Resolved) no meds Exercise / Class Metabolic Activity II 4-5 Yardwork/Stairs/Walk up hill Past Family History Family History Other No pertinent family history Past Anesthesia History No Hx of Anesthesia Complications and No Family Hx of Anesthesia Complications Social History Smoking Status: Never smoker Hx Alcohol Use: No Hx Substance Use: No Review of Systems no chest pain or sob Physical Exam Vital Signs Last Vital Signs Temp 36.6 C 10/01/18 03:05 Pulse 70 10/01/18 05:17 Resp 20 10/01/18 03:05 BP 121/75 10/01/18 05:17 Pulse Ox 100 10/01/18 05:16 ENMT Mouth: + chipped teeth; no TMJ abnormality Thyromental Distance: > or= 3.5 Finger Breadths Mallampati Class: II Neck normal visual inspection Respiratory normal respiratory effort Auscultation: lungs clear to auscultation bilaterally Cardiovascular Rate/Rhythm: regular rate and regular rhythm Musculoskeletal Spine: normal cervical ROM Neurologic moves all extremities Psychiatric Orientation: alert and oriented x 3 Testing Laboratory Results 10/01/18 03:37
[2018-10-01] MEDS ORDERED: CALCIUM CARBONATE 500 MG CHEWABLE TAB PO PRN (06:39)
--- NOTE | 2018-10-01 07:43 | Labor Progress Brief Note ---
Date of Service October 01, 2018 Subjective Comfortable with epidural Assessment & Plan (1) Normal labor: - tracing Cat II, good variability with accels - minimal cervical change after epidural - will start Pitocin - EFW 7 1/2 lbs Physical Exam Genitourinary: Cervix: 7/100/0, AROM clear Results & Data Vital Signs (Past 12 Hours) Vital Signs Temp Pulse Resp BP Pulse Ox 10/01/18 07:36 96 H 100 10/01/18 07:35 103 H 116/60 10/01/18 07:31 103 H 96 10/01/18 07:26 106 H 100 10/01/18 07:21 104 H 99 10/01/18 07:20 85 114/63 10/01/18 07:16 83 99 10/01/18 07:11 90 100 10/01/18 07:10 36.7 C 20 10/01/18 07:06 104 H 100 10/01/18 07:02 126 H 111/55 L 10/01/18 07:01 121 H 100 10/01/18 07:00 108 H 20 114/59 L 10/01/18 06:58 107 H 106/59 L 10/01/18 06:56 113 H 117/58 L 98 10/01/18 06:54 106 H 114/55 L 10/01/18 06:52 107 H 118/59 L 10/01/18 06:51 106 H 98 10/01/18 06:50 106 H 112/56 L 10/01/18 06:48 100 H 114/58 L 10/01/18 06:46 89 116/55 L 96 10/01/18 06:44 107 H 113/56 L 10/01/18 06:42 87 117/59 L 10/01/18 06:41 92 H 98 10/01/18 06:40 101 H 115/59 L 10/01/18 06:38 87 115/60 10/01/18 06:37 36.8 C 18 10/01/18 06:36 94 H 116/60 98 10/01/18 06:34 98 H 110/56 L 10/01/18 06:32 109 H 106/57 L 10/01/18 06:31 93 H 97 10/01/18 06:30 88 20 116/58 L 10/01/18 06:28 86 110/58 L 10/01/18 06:26 94 H 108/58 L 99 10/01/18 06:24 107 H 105/54 L 10/01/18 06:22 105 H 111/56 L 10/01/18 06:21 100 H 100 10/01/18 06:20 96 H 113/56 L 10/01/18 06:18 107 H 111/58 L 10/01/18 06:16 86 114/55 L 97 10/01/18 06:14 105 H 114/56 L 10/01/18 06:13 108 H 120/55 L 10/01/18 06:11 97 H 98 10/01/18 06:08 88 106/59 L 10/01/18 06:06 106 H 102/53 L 99 10/01/18 06:04 116 H 99/52 L 10/01/18 06:02 98 H 116/56 L 10/01/18 06:01 98 H 96 10/01/18 06:00 116 H 20 109/57 L 10/01/18 05:58 92 H 123/60 10/01/18 05:57 98 H 127/60 10/01/18 05:56 95 H 99 10/01/18 05:54 103 H 124/57 L 10/01/18 05:53 78 129/53 L 10/01/18 05:51 79 100 10/01/18 05:50 109 H 81/46 L 10/01/18 05:49 82 77/39 L 10/01/18 05:47 96 H 78/45 L 10/01/18 05:46 94 H 98 10/01/18 05:44 100 H 20 118/69 10/01/18 05:41 98 H 98 10/01/18 05:36 110 H 99 10/01/18 05:31 108 H 100 10/01/18 05:26 99 H 100 10/01/18 05:21 91 H 100 10/01/18 05:17 36.9 C 70 20 121/75 10/01/18 05:16 71 100 10/01/18 03:05 36.6 C 65 20 120/71 10/01/18 02:57 36.6 C 65 20 120/71
[2018-10-01] MEDS ORDERED: BENZOCAINE 20% AER SPR 82.5 GM CAN EXT PRN (09:36)
[2018-10-01] MEDS ORDERED: DIPHTHERIA/TETANUS/PERTUSSIS 0.5 ML SYR/VIAL IM ONE (09:36)
[2018-10-01] MEDS ORDERED: SUPERCREAM 0.870% 15 GM JAR EXT PRN (09:36)
[2018-10-01] MEDS ORDERED: HYDROCORTISONE ACETATE 25 MG SUPP PR PRN (09:36)
--- NOTE | 2018-10-01 09:49 | Delivery Summary ---
DATE OF OPERATION: 10/01/2018 DELIVERY NOTE FINDINGS: Viable male with Apgars of 8 and 9. Baby delivered over a midline second-degree laceration. Bloody amniotic fluid with delivery consistent with abruption. Cord blood samples obtained. Placenta delivered spontaneously with blood clot on the placenta consistent with abruption sent for pathological evaluation. Laceration repaired. ESTIMATED BLOOD LOSS: 300 mL. LABOR NOTE: The patient is a 28-year-old 2, para 1 with an EDC of 07 October at 39+ weeks gestational age, who presented to labor and delivery in active labor. The patient states the contractions were every 5 minutes and increased in intensity. She did not rupture membranes or vaginal bleeding. The patient had a history of HSV and was on Valtrex prophylaxis during the last 4 weeks of . She does not complain of any recent outbreaks. The patient has had a benign course. Her blood type is O positive, antibody negative, rubella immune, hepatitis B negative. She declined cell-free DNA screening. She had normal 1-hour Glucola x2 and a negative third trimester beta strep culture. Upon admission, the patient was 4 cm dilated, 80% effaced, 0 station in active labor. Tracing was category 1. Anesthesia was consulted and an epidural was placed. Following placement of the epidural, delivering physician assumed care for the patient. Artificial rupture of membranes for clear fluid. Contractions had spaced after the epidural and Pitocin augmentation was initiated. The patient progressed to full dilatation, began her second stage. She pushed for approximately 5 minutes delivering the viable male with delivery of the vertex, there was bloody amniotic fluid consistent with a placental abruption. The remainder of the baby was delivered. Cord was clamped and cut. Cord blood samples obtained. Placenta was delivered spontaneously. Inspection of the placenta showed a clot consistent with an abruption, this was sent for pathological evaluation. The midline second-degree laceration was repaired with 4-0 Vicryl. Estimated blood loss 300 mL. Sponge and needle count was correct. I attest to the content of the Intraoperative Record and any orders documented therein. Any exception s are noted below.
--- NOTE | 2018-10-01 10:08 | Anesthesia Procedure Note ---
Date of Service October 01, 2018 Anesthesia Post Epidural Note Vital Signs Vital Signs: Temp Pulse Resp BP Pulse Ox 36.7 C 106 H 20 121/55 L 100 10/01/18 07:10 10/01/18 09:54 10/01/18 09:54 10/01/18 09:54 10/01/18 09:01 Notes Mental Status: alert / awake / arousable and participated in evaluation Nausea / Vomiting: adequately controlled Pain: adequately controlled Airway Patency, RR, SpO2: stable & adequate BP & HR: stable & adequate Hydration State: stable & adequate Neuraxial Anesthesia: was administered and sensory block is resolving Anesthetic Complications: no major complications apparent and Pt Satisfied with anesthetic care Epidural: Removed without complications and With tip intact
[2018-10-01] MEDS: IBUPROFEN 600 MG TAB PO PRN ×3 (10:14→21:23)
[2018-10-01] MEDS: ACETAMINOPHEN W/CODEINE #3 1 TAB PO PRN (11:30)
[2018-10-01] MEDS ORDERED: ACETAMINOPHEN 325 MG TAB PO PRN ×2 (11:46→17:59)
[2018-10-01] MEDS: DOCUSATE SODIUM 100 MG CAP PO SCH (21:24)
[2018-10-02] MEDS: ACETAMINOPHEN W/CODEINE #3 1 TAB PO PRN (00:42)
--- NOTE | 2018-10-02 07:33 | Obstetrical Progress Note ---
Date of Service <Manjinder AngelitaJoel Araujo DO - Last Filed: 10/02/18 07:33> October 02, 2018 Assessment & Plan <Manjinder Araujo DO - Last Filed: 10/02/18 07:33> (1) (spontaneous vaginal delivery): -vital signs reviewed and WNL -Blood type: O+, GBS-, Rubella Immune -pt doing well clinically -encourage ambulation, monitor and control pain with motrin tylenol, cont regular diet, monitor lochia -cont encourage breast feeding -anticipate d/c tomorrow Subjective <Manjinder AngelitaJoel Araujo - Last Filed: 10/02/18 07:33> 28 y/o PPD1 found in bed this morning in NAD. Reports no acute overnight events. Pt states that she has no pain other than appropriate soreness. Tolerating PO intake without N/V. Able to ambulate without issue. She is breast feeding with some issues with latching. No issues with voiding, no BM yet but passing gas. No other acute concerns or complaints. Pt wants to stay another day. Review of Systems All systems reviewed & are unremarkable except as noted in HPI & below Physical Exam <Manjinder Araujo - Last Filed: 10/02/18 07:33> Constitutional WD/WN, vitals as above Respiratory normal respiratory effort, lungs clear to auscultation Cardiovascular RRR, no murmur, no edema Gastrointestinal (Abdomen) mild abd tenderness Skin no rashes, warm and dry Psychiatric A+Ox3, euthymic affect Lymphatic no LE swelling, no calf tenderness Results & Data <Manjinder Bertha Araujo - Last Filed: 10/02/18 07:33> Vital Signs (Past 12 Hours) Vital Signs Temp Pulse Resp BP 10/02/18 04:40 36.7 C 73 18 118/75 10/02/18 00:35 36.3 C L 80 18 115/80 10/01/18 20:10 36.7 C 92 H 18 109/70 Medications Administered Current Inpatient Medications Acetaminophen (Tylenol) 650 mg PO Q4H PRN PRN Reason: Fever or headache Stop: 10/31/18 11:45 Last Admin: 10/01/18 18:08 Dose: 650 mg Documented by: Acetaminophen/Codeine Phosphate (Tylenol W/Codeine #3) 1 - 2 tab PO Q4H PRN PRN Reason: Pain not controlled with... Stop: 10/31/18 09:35 Last Admin: 10/02/18 00:42 Dose: 1 tab Documented by: Benzocaine (Dermoplast Pain Relieving Pigeon) 1 appln EXT PRN PRN PRN Reason: Perineal Discomfort Stop: 10/31/18 09:35 Last Admin: 10/01/18 15:40 Dose: 82.5 appln Documented by: Calcium Carbonate (Tums) 500 mg PO Q6HWA PRN PRN Reason: Indigestion Stop: 10/31/18 06:38 Last Admin: 10/01/18 07:02 Dose: 500 mg Documented by: Cocaine HCl (Supercream 0.870%) 1 gm EXT BID PRN PRN Reason: Hemorrhoidal Inflammation Stop: 10/15/18 09:35 Docusate Sodium (Colace) 100 mg PO DAILY@08,21 [facility] Stop: 10/31/18 20:59 Last Admin: 10/01/18 21:24 Dose: 100 mg Documented by: Ferrous Sulfate (Feosol) 325 mg PO QAM [facility] Stop: 11/01/18 08:59 Hydrocortisone (Anusol Hc) 25 mg MN BID PRN PRN Reason: Hemorrhoidal Inflammation Stop: 10/31/18 09:35 Lactated Ringer's (Lr) 1,000 mls @ 125 mls/hr IV .Q8H PRN; Protocol PRN Reason: L&D Protocol Stop: 10/03/18 03:22 Last Infusion: 10/01/18 10:47 Dose: Infused Documented by: Oxytocin (Pitocin) 30 units in 500 mls @ 333.333 mls/hr IV .Q1H30M PRN; Protocol PRN Reason: Bleeding Control Stop: 10/31/18 09:35 Ibuprofen (Motrin) 600 mg PO Q4H PRN PRN Reason: Pain/BYERS/Cramping/Fever Stop: 10/31/18 09:35 Last Admin: 10/01/18 21:23 Dose: 600 mg Documented by: Prenat Multivit/Plate Embosser/Iron/Folic Ac ( Vitamin) 1 tab PO DAILY@08 [facility] Stop: 11/01/18 07:59 Ranitidine HCl (Zantac) 150 mg PO QAM BILL Stop: 10/31/18 19:29 Last Admin: 10/01/18 20:03 Dose: 150 mg Documented by: <Allen Demarco MD - Last Filed: 10/02/18 08:08> Co-Signing Physician Notes Patient seen and evaluated and agree with the above findings and plan. Resident Activity Tracking <Manjinder Araujo DO - Last Filed: 10/02/18 07:33> Resident Involvement: Resident Care Provided Care Provided: OB Delivery
[2018-10-02 08:03] LABS: Hematocrit (blood only) 29.4 % (37-47); Hemoglobin 9.7 g/dL (12.0-16.0); Mean Corpuscular Volume 81.7 fL (80-100); Mean Platelet Volume 10.2 fL (7.4-10.4); Platelet Count 285 K/uL (130-400); RDW Coefficient of Variation 14.3 % (11.5-14.5); RDW Standard Deviation 42.8 fL (36.4-46.3); White Blood Count 12.95 K/uL (4.8-10.8)
[2018-10-02] MEDS: IBUPROFEN 600 MG TAB PO PRN ×3 (08:48→21:27)
[2018-10-02] MEDS: PRENATAL VITAMIN 1 TAB PO SCH (08:48)
[2018-10-02] MEDS: DOCUSATE SODIUM 100 MG CAP PO SCH ×2 (08:48→20:35)
[2018-10-02] MEDS: FERROUS SULFATE 325 MG TAB PO SCH (08:48)
[2018-10-02] MEDS ORDERED: ACETAMINOPHEN PRN (13:28)
[2018-10-02] MEDS ORDERED: CAFFEINE PRN (13:28)
[2018-10-03 06:32] LABS: Hematocrit (blood only) 29.7 % (37-47); Hemoglobin 9.7 g/dL (12.0-16.0)
--- NOTE | 2018-10-03 07:52 | Obstetrical Progress Note ---
Date of Service October 03, 2018 Assessment & Plan (1) (spontaneous vaginal delivery): - doing well - desires d/c - instructions given - f/u in 6 weeks Subjective Ambulation: ambulating normally Voiding: no voiding problems Diet Tolerance:: regular diet Feeding Type:: breast feeding Physical Exam Constitutional WD/WN, vitals as above Gastrointestinal (Abdomen) Fundus firm below U Musculoskeletal (-) deep calf tenderness Results & Data Vital Signs (Past 12 Hours) Vital Signs Temp Pulse Resp BP Pulse Ox 10/02/18 22:55 36.7 C 66 18 121/83 98
[2018-10-03] MEDS: FERROUS SULFATE 325 MG TAB PO SCH (10:00)
[2018-10-03] MEDS: PRENATAL VITAMIN 1 TAB PO SCH (10:00)
[2018-10-03] MEDS: IBUPROFEN 600 MG TAB PO PRN (10:01)
[2018-10-03] MEDS: DOCUSATE SODIUM 100 MG CAP PO SCH (10:03)
== END 2018-10-03 12:38 | disposition home or self-care (01) | DRG 805 ==
LOC: OPB 02:44 → 4S1 02:46 → 4S2 15:27

== ENCOUNTER 2022-06-13 11:59 | Observation (INO) ==
--- NOTE | 2022-06-13 12:22 | XRay Report ---
SINGLE VIEW CHEST CLINICAL HISTORY: Dyspnea. FINDINGS: An AP, portable, upright chest radiograph is compared to study dated 06/11/2022. The cardiome diastinal silhouette is unremarkable. There is multifocal airspace consolidation throughout the left lung, greatest in the mid to lower lung. Mild patchy opacities are also seen in the right lung. A sma ll left pleural effusion is suspected. No pneumothorax is seen. The bony thorax is grossly intact. IMPRESSION: 1. Multifocal airspace consolidation is typical for pneumonia. This has modestly worsened as compared to 06/11/2022. 2. Suspect a small left pleural effusion. ACT 112: Negative or not required by law. Electronically signed by: Dmitri Mathis M.D. 06/13/2022 12:21 PM
[2022-06-13] MEDS ORDERED: ALBUT/IPRATROP 3MG/0.5MG NEB 3 ML VIAL NEB STA (13:08)
--- NOTE | 2022-06-13 13:08 | Emergency Department Note ---
Impression & Plan Multifocal pneumonia, Human metapneumovirus (hMPV) pneumonia, Coronavirus infection ED Provider Note INFORMANT: Patient ED PROVIDER(S): Jared Islas MD CHIEF COMPLAINT: Shortness of breath PLAN: Disposition: Admitted Condition: Guarded Outpatient prescription management: none Referral: None MEDICAL DECISION MAKING: Patient presented to the emergency department because of shortness of breath. She was recently diagnosed with pneumonia. Repeat chest x-ray was performed and revealed worsening of the multifocal pneumonia. Patient was maintaining her O2 saturations but noted significant dyspnea on exertion. Laboratory testing was performed. She had an unremarkable CBC and chemistry panel. The patient was given a albuterol nebulizer treatment. Her CBC and chemistry panels were unremarkable. ECG showed some slight increase in T wave inversion however no ST elevations or gross abnormalities. Patient underwent CT imaging of the chest and this revealed fairly significant multifocal pneumonia without evidence of thromboembolic disease. The patient's [employer] testing revealed the presence of human metapneumovirus as well as non-COVID coronavirus. I did discuss the case with Dr. Mojica of pulmonology. He recommended admission and IV cefepime and Zithromax for empiric coverage for possible secondary infection. Consultation was placed with the [facility] hospitalist service. Case was discussed and diagnostics were reviewed. Patient was evaluated in the ER and admitted under Dr. Rodriguez service. Discussed with manager home. After review of the information above and other included data, I feel the patient requires admission to the hospital. Triage Nursing notes reviewed and agree them. Vital Signs: reviewed and remarkable for hypertension Prior /Outside records reviewed: none Differential diagnosis: Reactive airway disease, pneumonia, pneumothorax, COPD, CHF, infections, cardiac ischemia, pulmonary embolism, musculoskeletal, gastrointestinal, as well as other pathologies. Diagnostics, as interpreted by me: ECG: Twelve-lead ECG reveals a normal sinus rhythm at 69 bpm. Inferior T wave inversions. When compared to 03/31/2013 there is more pronounced inferior T wave inversions. Cardiac Monitoring: Cardiac monitoring ordered by me: The patient was placed on continuous cardiac monitoring and observed. It revealed a normal sinus rhythm at 85 beats per minute without ectopy or evidence of dysrhythmia. Medical decision rules: none Imaging studies: Chest x-ray reveals findings consistent with worsening left- sided multifocal pneumonia. HPI: The patient is a 32year old female who presents to the Emergency Room with complaints of worsening shortness of breath. This started over the last several days and is much worse today. Patient was in the ER 2 days ago and was diagnosed with left-sided pneumonia. She was placed on doxycycline and ce fdinir. She is also using albuterol MDI. The patient also notes the following associated symptoms, chest pain with deep breathing, poor appetite. The patient has found no relieving factors. Current pain is rated as 4/10. Pt denies LOC, headache, diaphoresis, visual changes, neck pain,nausea, vomiting, abdominal pain, back pain, melena, hematochezia, urinary symptoms, numbness, weakness, lymphadenopathy, rash, or other complaints. PAST MEDICAL HISTORY: See Below, pneumonia, COVID PAST SURGICAL HISTORY: See Below, SOCIAL HISTORY: See Below, non-smoker HOME MEDICATIONS: See Below ALLERGIES: See Below VITALS: See Below PHYSICAL EXAMINATION: GENERAL: Awake, alert, mildly dyspneic-appearing, in no distress HENT: Normocephalic, atraumatic. Oropharynx unremarkable. EYES: Normal conjunctiva. Sclera non-icteric. NECK: Inspection normal. Non-tender. Supple. No nuchal rigidity. FROM. No masses. RESPIRATORY: Significant crackles noted on the left side. No wheezes. No rales. Minimally increased respiratory effort. CARDIAC: Normal rate. Normal rhythm. No murmurs. No rubs. Extremities warm and well perfused. Pulses equal. No JVD. GI: Soft, non-distended. No tenderness to palpation. No rebound or guarding. No masses. RECTAL: Deferred. MUSCULOSKELETAL: Atraumatic. Chest examination reveals no tenderness. The back is symmetrical on inspection without obvious abnormality. There is no CVA tend erness to palpation. No joint edema. LOWER EXTREMITIES: Calves are equal size bilaterally and non-tender. No edema. No discoloration. NEURO: Normal sensorium. No sensory or motor deficits noted. SKIN: No rash or jaundice noted. Past Med/Surg History Medical History Depression with anxiety no meds GERD (gastroesophageal reflux disease) History of varicella Migraine no meds Spontaneous vaginal delivery [facility] 03/2017 Tonsillectomy planned at age 6 Surgical History H/O wisdom tooth extraction at age 17 S/P tonsillectomy S/P wisdom tooth extraction Family History Sister Breast cancer Heart murmur Grandfather (Paternal) Hypertension Mother Hypothyroidism History of migraine headaches Other No pertinent family history Social History Smoking Status: Never smoker Hx Alcohol Use: No Hx Substance Use: No Preferred Language: Cameroonian Communication Ability: Effective Advertising Executive Required: No Beliefs That Will Affect Care: None marital status: Current Living Situation: Spouse Current Living Situation Comment: house Feels Safe at Home: Yes Assistive Devices: None Allergies Allergies Allergy/AdvReac Type Severity Reaction Status Date / Time blueberry Allergy Intermediate HIVES Verified 06/11/22 19:42 Pertussis Vaccines AdvReac Intermediate "high Verified 06/11/22 19:42 fever" Home Meds Home Medications Medication Instructions Recorded Confirmed citalopram 20 mg tablet 20 mg PO DAILY 12/08/19 06/11/22 zolmitriptan 2.5 mg tablet (Zomig) 2.5 mg PO Q2H PRN Migraine Headache 12/08/19 06/11/22 buspirone 15 mg tablet 15 mg PO HS 06/11/22 06/11/22 ibuprofen-diphenhydramine citrate 1 tab PO DIRECTED PRN Sleep 06/11/22 06/11/22 200 mg-38 mg tablet (Advil PM) valacyclovir 500 mg tablet 500 mg PO DIRECTED PRN FLARE UPS 06/11/22 06/11/22 Previous Rx's Medication Instructions Recorded albuterol sulfate 90 mcg/actuation 2 inh inhalation Q6H #18 grams 06/11/22 aerosol inhaler cefdinir 300 mg capsule 300 mg PO BID 10 days #20 caps 06/11/22 doxycycline hyclate 100 mg tablet 100 mg PO BID 10 days #20 tabs 06/11/22 Results & Data (ED) Vital Signs Vital Signs - 24 hr 06/13/22 12:00 06/13/22 12:47 06/13/22 12:49 Temperature 36.9 C Temperature Source Temporal Artery Scan Pulse Rate 75 78 Pulse Rate [Apical] Pulse Rhythm Regular Pulse Rhythm [Apical] Respiratory Rate 18 19 Respiratory Effort / Characteristics Non-Labored Spontaneous Respiratory Depth Normal Normal Respiratory Pattern Regular Blood Pressure 170/105 H Blood Pressure [Right Arm] Blood Pressure Mean 126 Blood Pressure Mean [Right Arm] Blood Pressure Position [Right Arm] Pulse Oximetry 96 95 Oxygen Delivery Method Room Air Room Air Room Air Sepsis Recent Fever Within 48 Hours No Sepsis New/Unexplained Change in Mental Status N/A Sepsis Action Taken by Nursing No Action Required 06/13/22 12:51 06/13/22 12:56 06/13/22 14:51 Temperature 36.9 C Temperature Source Oral Pulse Rate 90 Pulse Rate [Apical] 85 Pulse Rhythm Pulse Rhythm [Apical] Regular Respiratory Rate 15 Respiratory Effort / Characteristics Non-Labored Spontaneous Respiratory Depth Respiratory Pattern Blood Pressure Blood Pressure [Right Arm] 146/102 H Blood Pressure Mean Blood Pressure Mean [Right Arm] 116 Blood Pressure Position [Right Arm] Semi-fowlers Pulse Oximetry 95 95 Oxygen Delivery Method Room Air Room Air Sepsis Recent Fever Within 48 Hours Sepsis New/Unexplained Change in Mental Status Sepsis Action Taken by Nursing Laboratory Data 06/13/22 12:40 06/13/22 12:40 Lab Results 06/13/22 06/13/22 06/13/22 Range/Units 12:24 12:40 12:40 WBC 5.32 (4.8-10.8) K/ul RBC 4.35 (4.20-5.40) M/uL Hgb 12.3 (12.0-16.0) g/dl Hct 35.9 L (37.0-47.0) % MCV 82.5 (80.0-100.0) fL MCH 28.3 (25.0-34.0) pg MCHC 34.3 (32.0-36.0) g/dL RDW Std Deviation 43.3 (36.4-46.3) fL RDW Coeff of Marisol 14.4 (11.5-14.5) % Plt Count 338 (130-400) K/uL MPV 9.3 L (9.4-12.4) fL Immature Gran % (Auto) 0.4 % Neut % (Auto) 68.4 % Lymph % (Auto) 25.0 % Mclean % (Auto) 4.3 % Eos % (Auto) 1.3 % Baso % (Auto) 0.6 % Neut # (Auto) 3.64 (1.40-6.50) K/uL Lymph # (Auto) 1.33 (1.2-3.4) K/uL Mclean # (Auto) 0.23 (0.11-0.59) K/uL Eos # (Auto) 0.07 (0-0.50) K/uL Baso # (Auto) 0.03 (0-0.2) K/uL Immature Gran # (Auto) 0.02 (0.01-0.20) K/uL ESR (0-20) mm/hr Sodium 140 (136-145) mmol/L Potassium 3.3 L (3.5-5.1) mmol/L Chloride 108 H (98-107) mmol/L Carbon Dioxide 25 (21-32) mmol/L Anion Gap 7 (3-11) BUN 11 (6-23) mg/dl Creatinine 0.68 (0.6-1.2) mg/dl Est Cr Clr Drug Dosing 151.0 ml/min Est GFR ( Amer) 135.1 ml/min Est GFR (Non-Af Amer) 116.6 ml/min BUN/Creatinine Ratio 16.2 (10-20) Glucose 88 (70-99(Fasting)) mg/dl Calcium 8.4 L (8.5-10.1) mg/dl Total Bilirubin 0.6 (0.2-1.0) mg/dl AST 22 (13-39) U/L ALT 27 (7-52) U/L Alkaline Phosphatase 88 (34-104) U/L Troponin I High Sens 3.5 (0-14) pg/ml B-Natriuretic Peptide (0-100) pg/ml Total Protein 6.9 (6.0-8.3) gm/dl Albumin 4.0 (3.4-5.0) gm/dl Globulin 2.9 (2.5-4.0) gm/dl Albumin/Globulin Ratio 1.4 (0.9-2) HCG, Qual (Negative) Adenovirus (PCR) Not Detected (NotDetected) B. pertussis DNA (PCR) Not Detected (NotDetected) B.parapertussis DNA PCR Not Detected (NotDetected) C. pneumoniae DNA (PCR) Not Detected (NotDetected) Coronavirus OC43 (PCR) Not Detected (NotDetected) Coronavirus HKU1 (PCR) DETECTED A* (NotDetected) Coronavirus 229E (PCR) Not Detected (NotDetected) SARS-CoV-2 (PCR) Not Detected (NotDetected) Coronavirus NL63 (PCR) Not Detected (NotDetected) Human Metapneumovir PCR DETECTED A* (NotDetected) Influenza Type A (PCR) Not Detected (NotDetected) Influenza Type B (PCR) Not Detected (NotDetected) M. pneumoniae (PCR) Not Detected (NotDetected) Parainfluenza 1 (PCR) Not Detected (NotDetected) Parainfluenza 2 (PCR) Not Detected (NotDetected) Parainfluenza 3 (PCR) Not Detected (NotDetected) Parainfluenza 4 (PCR) Not Detected (NotDetected) RSV (PCR) Not Detected (NotDetected) Entero/Rhino (PCR) Not Detected (NotDetected) 06/13/22 06/13/22 06/13/22 Range/Units 12:40 12:48 12:58 WBC (4.8-10.8) K/ul RBC (4.20-5.40) M/uL Hgb (12.0-16.0) g/dl Hct (37.0-47.0) % MCV (80.0-100.0) fL MCH (25.0-34.0) pg MCHC (32.0-36.0) g/dL RDW Std Deviation (36.4-46.3) fL RDW Coeff of Marisol (11.5-14.5) % Plt Count (130-400) K/uL MPV (9.4-12.4) fL Immature Gran % (Auto) % Neut % (Auto) % Lymph % (Auto) % Mclean % (Auto) % Eos % (Auto) % Baso % (Auto) % Neut # (Auto) (1.40-6.50) K/uL Lymph # (Auto) (1.2-3.4) K/uL Mclean # (Auto) (0.11-0.59) K/uL Eos # (Auto) (0-0.50) K/uL Baso # (Auto) (0-0.2) K/uL Immature Gran # (Auto) (0.01-0.20) K/uL ESR 33 H (0-20) mm/hr Sodium (136-145) mmol/L Potassium (3.5-5.1) mmol/L Chloride (98-107) mmol/L Carbon Dioxide (21-32) mmol/L Anion Gap (3-11) BUN (6-23) mg/dl Creatinine (0.6-1.2) mg/dl Est Cr Clr Drug Dosing ml/min Est GFR ( Amer) ml/min Est GFR (Non-Af Amer) ml/min BUN/Creatinine Ratio (10-20) Glucose (70-99(Fasting)) mg/dl Calcium (8.5-10.1) mg/dl Total Bilirubin (0.2-1.0) mg/dl AST (13-39) U/L ALT (7-52) U/L Alkaline Phosphatase (34-104) U/L Troponin I High Sens (0-14) pg/ml B-Natriuretic Peptide 57 (0-100) pg/ml Total Protein (6.0-8.3) gm/dl Albumin (3.4-5.0) gm/dl Globulin (2.5-4.0) gm/dl Albumin/Globulin Ratio (0.9-2) HCG, Qual Negative (Negative) Adenovirus (PCR) (NotDetected) B. pertussis DNA (PCR) (NotDetected) B.parapertussis DNA PCR (NotDetected) C. pneumoniae DNA (PCR) (NotDetected) Coronavirus OC43 (PCR) (NotDetected) Coronavirus HKU1 (PCR) (NotDetected) Coronavirus 229E (PCR) (NotDetected) SARS-CoV-2 (PCR) (NotDetected) Coronavirus NL63 (PCR) (NotDetected) Human Metapneumovir PCR (NotDetected) Influenza Type A (PCR) (NotDetected) Influenza Type B (PCR) (NotDetected) M. pneumoniae (PCR) (NotDetected) Parainfluenza 1 (PCR) (NotDetected) Parainfluenza 2 (PCR) (NotDetected) Parainfluenza 3 (PCR) (NotDetected) Parainfluenza 4 (PCR) (NotDetected) RSV (PCR) (NotDetected) Entero/Rhino (PCR) (NotDetected) Administered Medications Discontinued Medications Albuterol (Albut/Ipratrop 3mg/0.5mg Neb 3 Ml Vial) 3 ml NEB NOW STA; Protocol Stop: 06/13/22 13:09 Last Admin: 06/13/22 13:22 Dose: 3 ml Documented By: AB Ioversol (Optiray 320 500ml) 110 ml IV ONCE ONE Stop: 06/13/22 14:04 Last Admin: 06/13/22 14:03 Dose: 110 ml Documented By: REESE Imaging Data Radiologist's Impression: Chest X-Ray 06/13/22 12:04 SINGLE VIEW CHEST CLINICAL HISTORY: Dyspnea. FINDINGS: An AP, portable, upright chest radiograph is compared to study dated 06/11/2022. The cardiomediastinal silhouette is unremarkable. There is multifocal airspace consolidation throughout the left lung, greatest in the mid to lower lung. Mild patchy opacities are also seen in the right lung. A small left pleural effusion is suspected. No pneumothorax is seen. The bony thorax is grossly intact. IMPRESSION: 1. Multifocal airspace consolidation is typical for pneumonia. This has modestly worsened as compared to 06/11/2022. 2. Suspect a small left pleural effusion. ACT 112: Negative or not required by law. Electronically signed by: Dmitri Mathis M.D. 06/13/2022 12:21 PM Chest CTA 06/13/22 13:08 CT ANGIOGRAM OF THE CHEST CLINICAL HISTORY: Dyspnea. Multifocal pneumonia. COMPARISON STUDY: Chest x-ray dated 06/13/2022. TECHNIQUE: Following the IV administration of 110 cc of Optiray 320, CT angiogram of the chest was performed from the upper abdomen to the thoracic inlet utilizing the pulmonary embolus protocol. Images are reviewed in the axial, sagittal, and coronal planes. 3-D MIPS images are created and assessed. IV contrast was administered without complication. A dose lowering technique was utilized adhering to the principles of ALARA. CT DOSE: 804.81 mGy.cm FINDINGS: Thyroid: Imaged portions of the thyroid gland are normal in size and attenuation. Thoracic aorta: The thoracic aorta is normal in caliber and demonstrates standard 3-vessel arch anatomy. No dissection is seen. Pulmonary vasculature: The pulmonary trunk is normal in caliber. There are no filling defects identified in main, lobar, or segmental pulmonary branches to suggest pulmonary embolus. Heart: The heart is normal in size and without pericardial effusion. Lungs and pleural spaces: There is multifocal airspace consolidation throughout both lungs, left significantly greater than right. Trace pleural effusions are identified. The trachea and central airways are clear. There is no pneumothorax. Mediastinum: There are numerous mildly enlarged mediastinal lymph nodes, measuring up to 16 mm in short axis. Janet: Enlarged hilar nodes measure up to 17 mm in short axis. Axillae: There is no axillary lymphadenopathy. Upper abdomen: Partially visualized upper abdominal viscera is within normal limits. Skeletal structures: No lytic or blastic bony lesions are seen. IMPRESSION: 1. There is no evidence of pulmonary embolus in the main, lobar, or segmental pulmonary arteries. 2. Multifocal airspace consolidation is seen throughout both lungs, left significantly greater than right. The appearance is typical for multifocal pneumonia. Clinical correlation will be required and radiographic follow-up to resolution is recommended. 3. Trace pleural effusions. 4. Mildly enlarged mediastinal and hilar lymph nodes are likely reactive. 5. Additional findings as above. ACT 112: Negative or not required by law. Electronically signed by: Dmitri Mathis M.D. 06/13/2022 2:30 PM Discharge Plan Visit Data Chief Complaint: Shortness of Breath/Dyspnea Stated Complaint: SOB GOTTEN WORSE,PNEUMONIA ED Provider: Jared Islas Discharge Problem: Multifocal pneumonia, Human metapneumovirus (hMPV) pneumonia, Coronavirus infection Forms Stand Alone Forms: My [facility] Prescriptions Prescriptions: No Action citalopram 20 mg tablet 20 mg PO DAILY zolmitriptan [Zomig] 2.5 mg tablet 2.5 mg PO Q2H MDD 4 DOSES/24 HOURS PRN (Reason: Migraine Headache) Rx Instructions: do not exceed 4 doses per 24 hrs buspirone [BuSpar] 15 mg Tablet 15 mg PO HS Rx Instructions: PER PT "CAN TAKE UP TO TID, IF NEEDED". Advil PM 200-38 mg Tablet 1 tab PO DIRECTED PRN (Reason: Sleep) valacyclovir 500 mg tablet 500 mg PO DIRECTED PRN (Reason: FLARE UPS) cefdinir 300 mg capsule 300 mg PO BID 10 Days Qty: 20 0RF albuterol sulfate 90 mcg/actuation HFA aerosol inhaler 2 inh inhalation Q6H Qty: 18 2RF doxycycline hyclate 100 mg tablet 100 mg PO BID 10 Days Qty: 20 0RF Referrals Referrals: Hien Machuca CRNP [Primary Care Provider] -
[2022-06-13 13:11] LABS: Basophils # (auto) 0.03 K/uL (0-0.2); Basophils % (auto) 0.6 %; Eosinophils # (auto) 0.07 K/uL (0-0.50); Eosinophils % (auto) 1.3 %; Hematocrit (blood only) 35.9 % (37.0-47.0); Hemoglobin 12.3 g/dl (12.0-16.0); Immature Granulocytes # (auto) 0.02 K/uL (0.01-0.20); Immature Granulocytes % (auto) 0.4 %; Lymphocytes # (auto) 1.33 K/uL (1.2-3.4); Mean Corpuscular Hemoglobin 28.3 pg (25.0-34.0); Mean Corpuscular Hgb Conc 34.3 g/dL (32.0-36.0); Mean Corpuscular Volume 82.5 fL (80.0-100.0); Mean Platelet Volume 9.3 fL (9.4-12.4); Monocytes # (auto) 0.23 K/uL (0.11-0.59); Monocytes % (auto) 4.3 %; Neutrophils # (auto) 3.64 K/uL (1.40-6.50); Neutrophils % (auto) 68.4 %; Platelet Count 338 K/uL (130-400); RDW Coefficient of Variation 14.4 % (11.5-14.5); RDW Standard Deviation 43.3 fL (36.4-46.3); Red Blood Count 4.35 M/uL (4.20-5.40); White Blood Count 5.32 K/ul (4.8-10.8)
[2022-06-13 13:28] LABS: Pregnancy Test, Serum Negative (Negative)
[2022-06-13 13:30] LABS: Albumin Globulin Ratio 1.4 (0.9-2); BUN Creatinine Ratio 16.2 (10-20); Bilirubin,Total 0.6 mg/dl (0.2-1.0); Calcium 8.4 mg/dl (8.5-10.1); Est GFR (African American) 135.1 ml/min; Est GFR (Non-African American) 116.6 ml/min; Globulin 2.9 gm/dl (2.5-4.0); Potassium 3.3 mmol/L (3.5-5.1); Total Protein 6.9 gm/dl (6.0-8.3)
[2022-06-13 13:33] LABS: Troponin I High Sensitivity 3.5 pg/ml (0-14)
[2022-06-13 13:50] LABS: Adenovirus PCR Not Detected (NotDetected); Bordetella parapertussis PCR Not Detected (NotDetected); Bordetella pertussis PCR Not Detected (NotDetected); Chlamydia pneumoniae PCR Not Detected (NotDetected); Coronavirus 229E PCR Not Detected (NotDetected); Coronavirus CoV-2 (COVID19)PCR Not Detected (NotDetected); Coronavirus NL63 PCR Not Detected (NotDetected); Coronavirus OC43PCR Not Detected (NotDetected); Influenza A PCR Not Detected (NotDetected); Influenza B PCR Not Detected (NotDetected); Mycoplasma pneumoniae PCR Not Detected (NotDetected); Parainfluenza Virus 1 PCR Not Detected (NotDetected); Parainfluenza Virus 2 PCR Not Detected (NotDetected); Parainfluenza Virus 3 PCR Not Detected (NotDetected); Parainfluenza Virus 4 PCR Not Detected (NotDetected); Respiratory Syncytial VirusPCR Not Detected (NotDetected); Rhinovirus/Enterovirus PCR Not Detected (NotDetected)
[2022-06-13] MEDS ORDERED: OPTIRAY 320 500ml IV ONE (14:03)
[2022-06-13 14:13] LABS: Coronavirus HKU1 PCR DETECTED (NotDetected); Human Metapneumovirus PCR DETECTED (NotDetected)
[2022-06-13] MEDS ORDERED: AZITHROMYCIN 500 MG in DEXTROSE 5% 250 ML IV STA (14:32)
--- NOTE | 2022-06-13 14:32 | CT Scan Report ---
CT ANGIOGRAM OF THE CHEST CLINICAL HISTORY: Dyspnea. Multifocal pneumonia. COMPARISON STUDY: Chest x-ray dated 06/13/2022. TECHNIQUE: Following the IV administration of 110 cc of Optiray 320, CT angiogram of the chest was pe rformed from the upper abdomen to the thoracic inlet utilizing the pulmonary embolus protocol. Images are reviewed in the axial, sagittal, and coronal planes. 3-D MIPS images are created and assessed. I V contrast was administered without complication. A dose lowering technique was utilized adhering to the principles of ALARA. CT DOSE: 804.81 mGy.cm FINDINGS: Thyroid: Imaged portions of the thyroid gland are normal in size and attenuation. Thoracic aorta: The thoracic aorta is normal in caliber and demonstrates standard 3-vessel arch anato my. No dissection is seen. Pulmonary vasculature: The pulmonary trunk is normal in caliber. There are no filling defects identif ied in main, lobar, or segmental pulmonary branches to suggest pulmonary embolus. Heart: The heart is normal in size and without pericardial effusion. Lungs and pleural spaces: There is multifocal airspace consolidation throughout both lungs, left sign ificantly greater than right. Trace pleural effusions are identified. The trachea and central airways are clear. There is no pneumothorax. Mediastinum: There are numerous mildly enlarged mediastinal lymph nodes, measuring up to 16 mm in bertha rt axis. Janet: Enlarged hilar nodes measure up to 17 mm in short axis. Axillae: There is no axillary lymphadenopathy. Upper abdomen: Partially visualized upper abdominal viscera is within normal limits. Skeletal structures: No lytic or blastic bony lesions are seen. IMPRESSION: 1. There is no evidence of pulmonary embolus in the main, lobar, or segmental pulmonary arteries. 2. Multifocal airspace consolidation is seen throughout both lungs, left significantly greater than r ight. The appearance is typical for multifocal pneumonia. Clinical correlation will be required and r adiographic follow-up to resolution is recommended. 3. Trace pleural effusions. 4. Mildly enlarged mediastinal and hilar lymph nodes are likely reactive. 5. Additional findings as above. ACT 112: Negative or not required by law. Electronically signed by: Dmitri Mathis M.D. 06/13/2022 2:30 PM
[2022-06-13] MEDS ORDERED: CEFEPIME 20 ML IV ONE (14:45)
--- NOTE | 2022-06-13 14:52 | History & Physical Report ---
Date of Service June 13, 2022 Assessment & Plan (1) Multifocal pneumonia: Plan: -Admit to med/tele on continuous pulse oximetry -The patient is currently afebrile, hemodynamically stable, and stable on RA -The patient has experienced progressive URI symptoms including SOB and DOLL despite being started on Cefdinir and Doxycycline on 06/11 after her first ED visit -Found to have multifocal pneumonia without PE's on CTA of the chest today, positive for Coronavirus HKU1 and Human Metapneumovirus. -The ED staff spoke with Pulmonology who recommended admission and adjusting abx to Cefepime and Azithromycin for now -Unsure at this time if her pneumonia is strictly viral or possibly with a superimposed bacterial pneumonia as procal was less than 0.50 -Will add on MRSA swab, CRP, and legionella testing for further assessment, sputum and blood cultures ordered by the ED -S/P one dose of cefepime and azithromycin in the ED, continue for now -Incentive spirometry, flutter therapy, QID DuoNebs, prn Robitussin, prn O2 to keep SpO2 at or above 95% -Will consult Pulmonology to follow while admitted, appreciate their assistance -BL SCD's and Sub-Q lovenox for DVT PPX -AM CBC, BMP, and mag (2) Hypokalemia: Plan: -Noted to be 3.3 today, T-wave inversions noted in the lateral leads on ECG today -Will add on mag level -Will give 20 meq PO KCL q2h x 3 doses -Monitor am electrolytes (3) Depression with anxiety: Plan: -Continue Celexa and Buspar -Will order HS Benadryl for sleep as requested by the patient Plan The patient was discussed with Dr. Rodriguez at the time of the admission History of Present Illness Chief Complaint: Worsening SOB and DOLL Primary Care Provider: Hien Baez is a 32 year old female with a PMH significant for anxiety, migraines, and genital herpes simplex who presented to the [facility] ED on 06/13/22 with a chief complaint of worsening SOB and DOLL. Per chart review, the patient was previously seen in the [facility] ED on 06/11/22 for flu-like symptoms and cough. Her workup revealed a left-sided pneumonia and she was discharged home on Cefdinir, doxycycline, and albuterol. The patient returned today as her symptoms have progressed, especially her DOLL. In the ED today the patient was found to be afebrile, hypertensive at 170/105, and stable on RA. Labs were remarkable for a CBC WNL, stable Cr at 0.68, potassium of 3.3, calcium of 8.4, otherwise stable electrolytes, LFT's WNL, high sensitivity trop of 3.5, and full respiratory biofire positive for Coronavirus HKU1 and Human Metapneumovirus. Chest xray today was read as "1. Multifocal airspace consolidation is typical for pneumonia. This has modestly worsened as compared to 06/11/2022. 2. Suspect a small left pleural effusion.". CTA of the chest with PE protocol was read as "1. There is no evidence of pulmonary embolus in the main, lobar, or segmental pulmonary arteries. 2. Multifocal airspace consolidation is seen throughout both lungs, left significantly greater than right. The appearance is typical for multifocal pneumonia. Clinical correlation will be required and radiographic follow-up to resolution is recommended. 3. Trace pleural effusions. 4. Mildly enlarged mediastinal and hilar lymph nodes are likely reactive. 5. Additional findings as above.". The ED staff spoke with Pulmonology who recommended admission for supportive care and recommended starting the patient on Cefepime and Azithromycin. At the time of the exam the patient was lying in bed in no acute distress, still stable on RA. She states that her symptoms started on 06/08/22 with fever, chills, congestion, and a non-productive cough. After starting the Doxycycline and Cefdinir on discharge she felt as though she was improving for about 24 hours. However, last night her symptoms started to progress with worsening congestion, cough, and SOB. She denies chest pain, abdominal pain, nausea, vomiting, diarrhea, dysuria, hematuria, LE swelling, and recent trauma. She has not had to use her Valtrex in approximately 2-3 weeks. Please refer to Dr. Rodriguez's attestation for any changes to the treatment plan Allergies Allergy/AdvReac Type Severity Reaction Status Date / Time blueberry Allergy Intermediate HIVES Verified 06/11/22 19:42 Pertussis Vaccines AdvReac Intermediate "high Verified 06/11/22 19:42 fever" Home Medications Medication Instructions Recorded Confirmed Type citalopram 20 mg tablet 20 mg PO HS 12/08/19 06/13/22 History zolmitriptan 2.5 mg tablet (Zomig) 2.5 mg PO Q2H PRN Migraine Headache 12/08/19 06/13/22 History albuterol sulfate 90 mcg/actuation 2 inh inhalation Q6H #18 grams 06/11/22 06/13/22 Rx aerosol inhaler buspirone 15 mg tablet 15 mg PO HS 06/11/22 06/13/22 History cefdinir 300 mg capsule 300 mg PO BID 10 days #20 caps 06/11/22 06/13/22 Rx doxycycline hyclate 100 mg tablet 100 mg PO BID 10 days #20 tabs 06/11/22 06/13/22 Rx ibuprofen-diphenhydramine citrate 1 tab PO DIRECTED PRN Sleep 06/11/22 06/13/22 History 200 mg-38 mg tablet (Advil PM) valacyclovir 500 mg tablet 500 mg PO DIRECTED PRN FLARE UPS 06/11/22 06/13/22 History Past Med/Surg History Medical History (Updated 06/13/22 @ 16:03 by Dougie Mojica MD) Abnormal CT scan, chest Acute dyspnea Depression with anxiety no meds GERD (gastroesophageal reflux disease) History of varicella Migraine no meds Non-productive cough Spontaneous vaginal delivery [facility] 03/2017 Tonsillectomy planned at age 6 Viral illness Surgical History H/O wisdom tooth extraction at age 17 S/P tonsillectomy S/P wisdom tooth extraction Family History Sister Breast cancer Heart murmur Grandfather (Paternal) Hypertension Mother Hypothyroidism History of migraine headaches Other No pertinent family history Social History Smoking Status: Never smoker Hx Alcohol Use: No Hx Substance Use: No Preferred Language: Belarusian Communication Ability: Effective 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 All systems have been reviewed and are otherwise negative. Physical Exam Physical Exam: Physical Exam: General: In no acute distress, stated age, obese, ill-appearing but non-toxic HEENT: Normocephalic, atraumatic, no scleral icterus, pupils around round, symmetrical, and reactive to light, increased pressure with palpation of the frontal and maxillary sinuses, moist mucus membranes, trachea midline, no thyromegaly Chest/Pulm: No respiratory distress, symmetrical chest expansion, scattered rhonchi and expiratory wheezing trhroughout Cardiac: RRR, no murmurs noted Abdomen: Negative for ascites and bruising, normoactive bowel sounds, soft, non-tender to palpation throughout Musculoskeletal: Symmetrical and without signs of acute trauma, upper and lower extremities with full ROM, no atrophy, spasticity, or flaccidity Extremities: Radial, dorsalis pedis, and posterior tibial pulses are intact and symmetrical, no edema noted in the BL LE's Skin: Warm, dry, no rashes , lesions, or scars noted Neuro: Alert and oriented to person, place, month, year, and president, no focal defects, no tremors noted Psych: No acute distress, calm and cooperative during the exam Results & Data Results & Data ([facility]) Vital Signs (Past 12 Hours) Vital Signs Temp Pulse Resp BP Pulse Ox O2 Del Method 06/13/22 12:56 90 06/13/22 12:51 95 Room Air 06/13/22 12:49 Room Air 06/13/22 12:47 78 19 95 Room Air 06/13/22 12:00 36.9 C 75 18 170/105 H 96 Room Air Laboratory Results Abnormal lab results 06/13/22 06/13/22 06/13/22 Range/Units 12:24 12:40 12:40 Hct 35.9 L (37.0-47.0) % MPV 9.3 L (9.4-12.4) fL ESR (0-20) mm/hr Potassium 3.3 L (3.5-5.1) mmol/L Chloride 108 H (98-107) mmol/L Calcium 8.4 L (8.5-10.1) mg/dl C-Reactive Protein (0-0.5) mg/dl Coronavirus HKU1 (PCR) DETECTED A* (NotDetected) Human Metapneumovir PCR DETECTED A* (NotDetected) 06/13/22 06/13/22 Range/Units 12:58 12:58 Hct (37.0-47.0) % MPV (9.4-12.4) fL ESR 33 H (0-20) mm/hr Potassium (3.5-5.1) mmol/L Chloride (98-107) mmol/L Calcium (8.5-10.1) mg/dl C-Reactive Protein 4.04 H (0-0.5) mg/dl Coronavirus HKU1 (PCR) (NotDetected) Human Metapneumovir PCR (NotDetected) Diagnostic Findings Chest X-Ray 06/13/22 12:04 SINGLE VIEW CHEST CLINICAL HISTORY: Dyspnea. FINDINGS: An AP, portable, upright chest radiograph is compared to study dated 06/11/2022. The cardiomediastinal silhouette is unremarkable. There is multifocal airspace consolidation throughout the left lung, greatest in the mid to lower lung. Mild patchy opacities are also seen in the right lung. A small left pleural effusion is suspected. No pneumothorax is seen. The bony thorax is grossly intact. IMPRESSION: 1. Multifocal airspace consolidation is typical for pneumonia. This has modestly worsened as compared to 06/11/2022. 2. Suspect a small left pleural effusion. ACT 112: Negative or not required by law. Electronically signed by: Dmitri Mathis M.D. 06/13/2022 12:21 PM Chest CTA 06/13/22 13:08 CT ANGIOGRAM OF THE CHEST CLINICAL HISTORY: Dyspnea. Multifocal pneumonia. COMPARISON STUDY: Chest x-ray dated 06/13/2022. TECHNIQUE: Following the IV administration of 110 cc of Optiray 320, CT angiogram of the chest was performed from the upper abdomen to the thoracic inlet utilizing the pulmonary embolus protocol. Images are reviewed in the axial, sagittal, and coronal planes. 3-D MIPS images are created and assessed. IV contrast was administered without complication. A dose lowering technique was utilized adhering to the principles of ALARA. CT DOSE: 804.81 mGy.cm FINDINGS: Thyroid: Imaged portions of the thyroid gland are normal in size and attenuation. Thoracic aorta: The thoracic aorta is normal in caliber and demonstrates standard 3-vessel arch anatomy. No dissection is seen. Pulmonary vasculature: The pulmonary trunk is normal in caliber. There are no filling defects identified in main, lobar, or segmental pulmonary branches to suggest pulmonary embolus. Heart: The heart is normal in size and without pericardial effusion. Lungs and pleural spaces: There is multifocal airspace consolidation throughout both lungs, left significantly greater than right. Trace pleural effusions are identified. The trachea and central airways are clear. There is no pneumothorax. Mediastinum: There are numerous mildly enlarged mediastinal lymph nodes, measuring up to 16 mm in short axis. Janet: Enlarged hilar nodes measure up to 17 mm in short axis. Axillae: There is no axillary lymphadenopathy. Upper abdomen: Partially visualized upper abdominal viscera is within normal limits. Skeletal structures: No lytic or blastic bony lesions are seen. IMPRESSION: 1. There is no evidence of pulmonary embolus in the main, lobar, or segmental pulmonary arteries. 2. Multifocal airspace consolidation is seen throughout both lungs, left significantly greater than right. The appearance is typical for multifocal pneumonia. Clinical correlation will be required and radiographic follow-up to resolution is recommended. 3. Trace pleural effusions. 4. Mildly enlarged mediastinal and hilar lymph nodes are likely reactive. 5. Additional findings as above. ACT 112: Negative or not required by law. Electronically signed by: Dmitri Mathis M.D. 06/13/2022 2:30 PM ECG Additional Comments: Normal sinus rhythm T wave abnormality, consider inferior ischemia Abnormal ECG When compared with ECG of 31-MAR-2013 22:06, T wave inversion more evident in Inferior leads Nonspecific T wave abnormality now evident in Lateral leads Code Status & VTE Plan Code Status Full code VTE Prophylaxis Plan VTE Prophylaxis will be ordered: Yes Supervising Physician Co-Signing Physician Notes I personally saw and examined the patient. I verified all soto points and agree with Ricardo Hooper PA-C with the following exceptions and/or additions: 32 year old female presents with shortness of breath progressively getting worse over the last 5 days. Exposure to viral illness with her children. O/E A&Ox3, HS RRR, no murmurs, Chest mild rhonchi b/l, reduced breath sounds bibasal, Abdo SNT A/P Viral pneumonia - suspect reason she is not improving is that this is a viral pneumonia with metapneumovirus and coronavirus (not COVID) on biofire. Antibiotics requested by pulmnology although procalcitonin negative and lak of improvement suggests against this. Will defer steroids to pulmonology but no obstructive airway symptoms. Incentive spirometer. Flutter valve. PG Care Time/CCT Total # of Minutes Spent Total Time Spent with Patient: Total time spent is greater than 50% in coordination of care (as documented) at patient's floor/unit and/or counseling patient: C[place] [address] INT INP/OBS CARE 2/55MIN Patient Type Established Medical Decision Making High Complexity Diagnoses Multifocal pneumonia J18.9 Hypokalemia E87.6 Depression with anxiety F41.8
[2022-06-13] MEDS ORDERED: guaiFENesin SUGAR FREE 200 MG/10 ML UDC PO STA (14:59)
[2022-06-13 15:05] LABS: Appearance Urine Clear (Clear); Bilirubin Urine Negative (Negative); Blood Urine Negative (Negative); Color Urine Yellow; Glucose Urine UA Negative (Negative); Ketones Urine Negative (Negative); Leukocyte Esterase Urine Negative (Negative); Nitrite Urine Negative (Negative); Protein Urine Negative (Negative); Specific Gravity Urine 1.026 (1.000-1.030); Urobilinogen Urine Negative (Negative)
[2022-06-13] MEDS ORDERED: SODIUM CHLORIDE 0.65% NA SOLN 45 ML (OCEAN) PRN (15:09)
[2022-06-13] MEDS: ALBUT/IPRATROP 3MG/0.5MG NEB 3 ML VIAL NEB SCH ×2 (15:36→19:49)
[2022-06-13] MEDS: POTASSIUM CHLORIDE CRTAB 20 MEQ TABCR PO SCH ×3 (15:36→20:16)
--- NOTE | 2022-06-13 15:43 | Pulmonary Consultation ---
Date of Consultation June 13, 2022 Assessment & Plan (1) Multifocal pneumonia: (2) Viral illness: (3) Abnormal CT scan, chest: (4) Non-productive cough: (5) Acute dyspnea: (6) Acute bronchitis: Plan 32-year-old female with no prior history of lung disease presenting to the [facility] due to shortness of breath. Patient likely with viral pneumonitis. Difficult to rule out superimposed bacterial infection. Agree with cefepime and azithromycin. Urine Legionella antigen pending. Hypersensitivity pneumonitis related to exposure to recently acquired ducklings also remains a possibility, but less likely. Continue DuoNebs every 4 hours. We will also add nebulized budesonide twice daily. We will add hypertonic saline twice daily and percussive vest therapy 4 times a day to help with mucociliary clearance. We will consider the addition of oral corticosteroids starting tomorrow if no significant improvement of symptoms. Plan of care discussed with the patient who is in agreement. Thank you for allowing me to participate in the care of the patient. I will continue to follow along with you. History of Present Illness Reason for Consultation: Multifocal pneumonia History of Present Illness History obtained from chart review, interview of patient and discussion with the ER physician. 32-year-old female with a history of morbid obesity, depression and anxiety presenting to the hospital due to increasing shortness of breath. She was originally seen 06/11/2022 due to fevers that started 4 days prior. She also had body aches and cough. She was ultimately sent home on cefdinir, doxycycline and with an albuterol inhaler. She presented today once again to the ER due to chest pain and shortness of breath. He had a CT of the chest which revealed multifocal pneumonia which I personally reviewed. The ER called me for further assistance in managing the patient. I recommended to start the patient on IV cefepime and azithromycin. Patient notes that her most bothersome symptoms are at night and in the morning where she has significant shortness of breath and a very harsh cough. She notes that she is not producing much phlegm. She also notes that she has 2 children at home which are sick with similar symptoms. Respiratory viral panel was ordered by the ER which revealed positive PCR for coronavirus H KU 1 and human metapneumovirus. Urine Legionella antigen was ordered as well which is pending. Procalcitonin was less than 0.05. Blood cultures pending. She denies any vaping or e-cigarettes. No IV drug use. 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 She notes that about 1 month ago they got 3 new ducklings to keep as pets. She relates that she is currently trying to give the ducklings away as they are too much work. Allergies Allergy/AdvReac Type Severity Reaction Status Date / Time blueberry Allergy Intermediate HIVES Verified 06/11/22 19:42 Pertussis Vaccines AdvReac Intermediate "high Verified 06/11/22 19:42 fever" Home Medications Medication Instructions Recorded Confirmed Type citalopram 20 mg tablet 20 mg PO HS 12/08/19 06/13/22 History zolmitriptan 2.5 mg tablet (Zomig) 2.5 mg PO Q2H PRN Migraine Headache 12/08/19 06/13/22 History albuterol sulfate 90 mcg/actuation 2 inh inhalation Q6H #18 grams 06/11/22 06/13/22 Rx aerosol inhaler buspirone 15 mg tablet 15 mg PO HS 06/11/22 06/13/22 History cefdinir 300 mg capsule 300 mg PO BID 10 days #20 caps 06/11/22 06/13/22 Rx doxycycline hyclate 100 mg tablet 100 mg PO BID 10 days #20 tabs 06/11/22 06/13/22 Rx ibuprofen-diphenhydramine citrate 1 tab PO DIRECTED PRN Sleep 06/11/22 06/13/22 History 200 mg-38 mg tablet (Advil PM) valacyclovir 500 mg tablet 500 mg PO DIRECTED PRN FLARE UPS 06/11/22 06/13/22 History Patient History Medical History (Updated 06/13/22 @ 16:03 by Dougie Mojica MD) Abnormal CT scan, chest Acute dyspnea Depression with anxiety no meds GERD (gastroesophageal reflux disease) History of varicella Migraine no meds Non-productive cough Spontaneous vaginal delivery [facility] 03/2017 Tonsillectomy planned at age 6 Viral illness Surgical History H/O wisdom tooth extraction at age 17 S/P tonsillectomy S/P wisdom tooth extraction Family History Sister Breast cancer Heart murmur Grandfather (Paternal) Hypertension Mother Hypothyroidism History of migraine headaches Other No pertinent family history Social History Smoking Status: Never smoker Hx Alcohol Use: No Hx Substance Use: No Preferred Language: Estonian Communication Ability: Effective Enterer Required: No Beliefs That Will Affect Care: None marital status: Current Living Situation: Spouse Current Living Situation Comment: house Feels Safe at Home: Yes Assistive Devices: None Review of Systems Review of Systems: All systems reviewed & are unremarkable except as noted in HPI & below Physical Exam Physical Exam: Constitutional: Obese appearing female. Appears tired. No distress. Eyes: Pupils are equal round and reactive to light. Conjunctivae are normal. Anicteric sclera. Ears nose, mouth and throat: Mallampati class 2. Normal posterior oropharynx. Uvula is midline. Neck: Trachea is midline. Visual inspection is normal. Respiratory: Coarse rhonchi bilaterally. No wheeze. No tachypnea. Cardiovascular: Regular rate and rhythm. No murmurs. No edema. Gastrointestinal: Normal bowel sounds, soft, nontender and nondistended. No hepatosplenomegaly noted. Musculoskeletal: No cyanosis. Patient is able to move all extremities. Strength is 5 out of 5 in the upper and lower extremities. Skin: No rashes, warm dry and intact. Neurologic: No obvious focal neurological deficits seen. Psychiatric: Alert and oriented x3 with a euthymic affect. Results & Data Results & Data ([facility]) Vital Signs (Past 12 Hours) Vital Signs Temp Pulse Pulse Resp BP BP Pulse Ox 06/13/22 14:51 36.9 C 85 15 146/102 H 95 06/13/22 12:56 90 06/13/22 12:51 95 06/13/22 12:49 06/13/22 12:47 78 19 95 06/13/22 12:00 36.9 C 75 18 170/105 H 96 O2 Del Method 06/13/22 14:51 Room Air 06/13/22 12:56 06/13/22 12:51 Room Air 06/13/22 12:49 Room Air 06/13/22 12:47 Room Air 06/13/22 12:00 Room Air PG Care Time/CCT Total # of Minutes Spent Total Time Spent with Patient: Total time spent is greater than 50% in coordination of care (as documented) at patient's floor/unit and/or counseling patient: Coding Level of Care Code 45017 IN/OBS CONSULT LVL 5,80M Diagnoses Multifocal pneumonia J18.9 Viral illness B34.[address] scan, chest R93.89 Non-productive cough R05.8 Acute dyspnea R06.00 Acute bronchitis J20.9
[2022-06-13] MEDS ORDERED: SODIUM CHLOR 7% 4 ML NEB NEB STA (15:57)
[2022-06-13] MEDS ORDERED: BUDESONIDE 0.25 MG/2 ML VIAL (PULMICORT) NEB STA (16:00)
[2022-06-13] MEDS: SODIUM CHLOR 7% 4 ML NEB NEB SCH (19:49)
[2022-06-13] MEDS: busPIRone 15 MG TAB PO SCH (20:15)
[2022-06-13] MEDS: MAGNESIUM SULFATE / D5W 1 GM/100 ML BAG IV SCH ×2 (20:15→22:58)
[2022-06-13] MEDS: ENOXAPARIN INJ 40 MG/0.4 ML SYR SQ SCH (20:15)
[2022-06-13] MEDS: CITALOPRAM 20 MG TAB PO SCH (20:16)
[2022-06-13] MEDS: guaiFENesin SUGAR FREE 200 MG/10 ML UDC PO SCH (20:16)
[2022-06-13] MEDS ORDERED: IBUPROFEN 600 MG TAB PO STA (20:35)
[2022-06-13] MEDS ORDERED: diphenhydrAMINE 50 MG/ML VIAL IV PRN (21:00)
[2022-06-13] MEDS: CEFEPIME 2,000 MG in SYRINGE 0 ML IV SCH (23:20)
[2022-06-13] MEDS: ONDANSETRON INJ 2 MG/ML 2 ML VIAL IV PRN (23:20)
[2022-06-14] MEDS: guaiFENesin SUGAR FREE 200 MG/10 ML UDC PO SCH ×4 (03:12→22:19)
[2022-06-14] MEDS: diphenhydrAMINE Capsule 25 MG CAP PO PRN ×2 (03:15→22:19)
[2022-06-14] MEDS: ACETAMINOPHEN 325 MG TAB PO PRN ×3 (03:15→18:37)
[2022-06-14 06:17] LABS: Basophils # (auto) 0.03 K/uL (0-0.2); Basophils % (auto) 0.6 %; Eosinophils # (auto) 0.02 K/uL (0-0.50); Eosinophils % (auto) 0.4 %; Hematocrit (blood only) 37.3 % (37.0-47.0); Hemoglobin 12.5 g/dl (12.0-16.0); Immature Granulocytes # (auto) 0.02 K/uL (0.01-0.20); Immature Granulocytes % (auto) 0.4 %; Lymphocytes # (auto) 1.07 K/uL (1.2-3.4); Lymphocytes % (auto) 20.3 %; Mean Corpuscular Hgb Conc 33.5 g/dL (32.0-36.0); Mean Corpuscular Volume 83.4 fL (80.0-100.0); Mean Platelet Volume 9.3 fL (9.4-12.4); Monocytes # (auto) 0.23 K/uL (0.11-0.59); Monocytes % (auto) 4.4 %; Neutrophils # (auto) 3.91 K/uL (1.40-6.50); Neutrophils % (auto) 73.9 %; Platelet Count 373 K/uL (130-400); RDW Coefficient of Variation 14.5 % (11.5-14.5); RDW Standard Deviation 43.8 fL (36.4-46.3); Red Blood Count 4.47 M/uL (4.20-5.40); White Blood Count 5.28 K/ul (4.8-10.8)
[2022-06-14] MEDS: CEFEPIME 2,000 MG in SYRINGE 0 ML IV SCH ×3 (06:22→22:19)
[2022-06-14] MEDS: ENOXAPARIN INJ 40 MG/0.4 ML SYR SQ SCH ×2 (06:22→18:38)
[2022-06-14 06:47] LABS: Calcium 8.3 mg/dl (8.5-10.1); Magnesium 2.3 mg/dl (1.7-2.4); Potassium 4.3 mmol/L (3.5-5.1)
[2022-06-14 06:52] LABS: BUN Creatinine Ratio 12.9 (10-20); Creatinine Clr Calc Pharmacy 165.6 ml/min; Est GFR (African American) 139.3 ml/min; Est GFR (Non-African American) 120.2 ml/min
[2022-06-14] MEDS: SODIUM CHLOR 7% 4 ML NEB NEB SCH ×2 (06:53→19:06)
[2022-06-14] MEDS: ALBUT/IPRATROP 3MG/0.5MG NEB 3 ML VIAL NEB SCH ×4 (06:53→19:06)
--- NOTE | 2022-06-14 06:58 | Hospitalist Progress Note ---
Date of Service June 14, 2022 Assessment & Plan (1) Multifocal pneumonia: (2) Viral illness: (3) Abnormal CT scan, chest: (4) Non-productive cough: (5) Acute dyspnea: (6) Acute bronchitis: Plan Sasha is a 32 year-old female with no prior history of lung disease who presented to the hospital after progressive URI symptoms of SOB and DOLL that did not respond to two days of Cefdinir and Doxycycline. Multifocal Viral Pneumonia -Viral etiology vs bacterial, positive for Coronavirus HKU1 and Human Metapneumovirus -Multifocal pneumonia without PE's on CTA of the chest -Procal <0.05, CRP 4.04, ESR 33 -MRSA nares negative, Legionella pending, Blood Cultures pending -Continue Cefepime, Azithromycin -PRN O2 to keep SpO2 at or above 95% -Pulmonology consulted, appreciate rec's -DuoNebs q4h -Nebulized budesonide BID -Hypertonic saline BID, Percussive vest therapy QID to help with mucociliary clearance -Prednisone 40mg daily added, (+Protonix while on steroids) Hypokalemia -Noted to be 3.3 on admission, 4.3 today (3 total doses of 20mEq KCL yesterday) -Repeat BMP tomorrow a.m. Depression with anxiety -Continue Celexa and Buspar -Will order HS Benadryl for sleep as requested by the patient Diet: Heart Healthy DVT PPx: Bl SCD's, Lovenox subQ Code Status: Full Admission and Anticipated Discharge Date Admission Date: June 13, 2022 Supervising Physician Co-Signing Physician Notes Resident Physician Supervision Note: I independently interviewed and examined the patient and verified the soto history and physical, reviewed labs and image studies and agree with resident findings and care plan. Subjective Sasha is a 32 year-old female with no prior history of lung disease who presented to the hospital after progressive URI symptoms of SOB and DOLL that did not respond to two days of Cefdinir and Doxycycline. 06/14: Patient was seen and examined at bedside. No acute events overnight. Sasha states she did not sleep well last night, but is feeling a bit better today than yesterday. Continues to have a dry cough and some dyspnea on exertion when walking to the bathroom. She endorses a headache this morning, was given motrin overnight for the headache. Denies dizziness, chest pain, body aches/chills, abdominal pain. Review of Systems Review of Systems: As per HPI Physical Exam Constitutional: WD/WN, vitals as above Eyes: Anicteric sclerae ENMT: Moist mucous membranes Respiratory: +Cough. Rhonchi scattered throughout. Cardiovascular: RRR, no murmur, no edema No lower extremity edema Gastrointestinal (Abdomen): normal bowel sounds, soft, nontender, no hepatosplenomegaly Skin: no rashes, warm and dry Psychiatric: A+Ox3, euthymic affect Results & Data Results & Data ([facility]) Vital Signs (Past 12 Hours) Vital Signs Temp Pulse Pulse Resp BP BP Pulse Ox 06/14/22 06:53 74 18 89 L 06/14/22 03:10 36.9 C 81 18 153/94 H 94 06/13/22 22:01 102 H 06/13/22 22:16 37.1 C 103 H 18 159/83 H 92 06/13/22 19:49 70 18 96 06/13/22 20:36 06/13/22 19:34 36.9 C 72 18 155/101 H 96 O2 Del Method 06/14/22 06:53 Room Air 06/14/22 03:10 Room Air 06/13/22 22:01 06/13/22 22:16 Room Air 06/13/22 19:49 Room Air 06/13/22 20:36 Room Air 06/13/22 19:34 Room Air Resident Activity Tracking Resident Involvement: Resident Care Provided Care Provided: Adult Hospital Medicine
--- NOTE | 2022-06-14 09:25 | Electrocardiogram Report ---
Test Reason : Blood Pressure : / mmHG Vent. Rate : 069 BPM Atrial Rate : 069 BPM P-R Int : 118 ms QRS Dur : 088 ms QT Int : 416 ms P-R-T Axes : 037 073 -13 degrees QTc Int : 445 ms Normal sinus rhythm T wave abnormality, consider inferior ischemia Abnormal ECG When compared with ECG of 31-MAR-2013 22:06, T wave inversion more evident in Inferior leads Nonspecific T wave abnormality now evident in Lateral leads Confirmed by Kelechi Wilson ([id number]) on 06/14/2022 9:25:17 AM Referred By: Confirmed By:Kelechi Wilson
[2022-06-14] MEDS: AZITHROMYCIN 250 MG TAB PO SCH (09:45)
[2022-06-14] MEDS: ONDANSETRON INJ 2 MG/ML 2 ML VIAL IV PRN (09:49)
--- NOTE | 2022-06-14 12:45 | Pulmonology Progress Note ---
Date of Service June 14, 2022 Assessment & Plan (1) Bronchiolitis: (2) Multifocal pneumonia: (3) Viral illness: (4) Abnormal CT scan, chest: (5) Non-productive cough: (6) Acute dyspnea: (7) Acute bronchitis: Plan 32-year-old female with no prior history of lung disease presenting to the hospital due to shortness of breath. Respiratory viral panel positive for coronavirus HKU1 and human metapneumovirus. Patient with viral bronchiolitis. Cannot rule out superimposed bacterial infection. Recommend a 5-day course of azithromycin. Urine Legionella antigen pending. We will add 40 mg of prednisone daily for 5 days. Patient also requesting Motrin for headache which can be ordered by the primary team. We will add Protonix for the time that she is on prednisone. Continue DuoNebs every 4 hours. Continue nebulized budesonide twice daily. C ontinue hypertonic saline twice daily and percussive vest therapy 4 times a day to help with mucociliary clearance. Plan of care discussed with the patient who is in agreement. Thank you for allowing me to participate in the care of the patient. I will continue to follow along with you. Can likely be discharged home tomorrow. Admission and Anticipated Discharge Date Admission Date: June 13, 2022 Subjective Patient notes that she is lethargic today and had a poor night sleeping. She endorses a headache. Cough remains and is mostly dry. No fevers, chills or night sweats. Review of Systems Review of Systems: All systems reviewed & are unremarkable except as noted in HPI & below Physical Exam Physical Exam: Constitutional: Obese appearing female. Appears tired. No distress. Eyes: Pupils are equal round and reactive to light. Conjunctivae are normal. Anicteric sclera. Ears nose, mouth and throat: Mallampati class 2. Normal posterior oropharynx. Uvula is midline. Neck: Trachea is midline. Visual inspection is normal. Respiratory: Coarse rhonchi bilaterally. No wheeze. No tachypnea. Cardiovascular: Regular rate and rhythm. No murmurs. No edema. Gastrointestinal: Normal bowel sounds, soft, nontender and nondistended. No hepatosplenomegaly noted. Musculoskeletal: No cyanosis. Patient is able to move all extremities. Strength is 5 out of 5 in the upper and lower extremities. Skin: No rashes, warm dry and intact. Neurologic: No obvious focal neurological deficits seen. Psychiatric: Alert and oriented x3 with a euthymic affect. Results & Data Results & Data ([facility]) Vital Signs (Past 12 Hours) Vital Signs Temp Pulse Pulse Resp BP BP Pulse Ox 06/14/22 11:31 80 16 96 06/14/22 11:25 36.8 C 86 18 134/79 96 06/14/22 08:00 06/14/22 07:48 37.0 C 99 H 18 136/84 93 06/14/22 07:34 74 06/14/22 06:53 74 18 89 L 06/14/22 03:10 36.9 C 81 18 153/94 H 94 O2 Del Method 06/14/22 11:31 Room Air 06/14/22 11:25 Room Air 06/14/22 08:00 Room Air 06/14/22 07:48 Room Air 06/14/22 07:34 06/14/22 06:53 Room Air 06/14/22 03:10 Room Air PG Care Time/CCT Total # of Minutes Spent Total Time Spent with Patient: Total time spent is greater than 50% in coordination of care (as documented) at patient's floor/unit and/or counseling patient: Coding Level of Care Code 08271 SUB INP/OBS CARE 2/35MIN Diagnoses Bronchiolitis J21.9 Multifocal pneumonia J18.9 Viral illness B34.[address] scan, chest R93.89 Non-productive cough R05.8 Acute dyspnea R06.00 Acute bronchitis J20.9
[2022-06-14] MEDS: predniSONE 20 MG TAB PO SCH (13:45)
[2022-06-14] MEDS: PANTOprazole 40 MG TAB PO SCH (13:45)
[2022-06-14] MEDS ORDERED: PROCHLORPERAZINE MALEATE 10 MG TAB PO STA (16:06)
[2022-06-14] MEDS ORDERED: IBUPROFEN 600 MG TAB PO STA (19:07)
[2022-06-14] MEDS: busPIRone 15 MG TAB PO SCH (20:13)
[2022-06-14] MEDS: CITALOPRAM 20 MG TAB PO SCH (20:13)
[2022-06-15] MEDS: guaiFENesin SUGAR FREE 200 MG/10 ML UDC PO SCH ×2 (03:06→12:40)
[2022-06-15] MEDS: ENOXAPARIN INJ 40 MG/0.4 ML SYR SQ SCH (06:10)
[2022-06-15] MEDS: CEFEPIME 2,000 MG in SYRINGE 0 ML IV SCH (06:10)
[2022-06-15] MEDS: ACETAMINOPHEN 325 MG TAB PO PRN (06:15)
[2022-06-15] MEDS: SODIUM CHLOR 7% 4 ML NEB NEB SCH (06:54)
[2022-06-15] MEDS: ALBUT/IPRATROP 3MG/0.5MG NEB 3 ML VIAL NEB SCH ×2 (06:55→11:24)
[2022-06-15 07:50] LABS: Hematocrit (blood only) 38.3 % (37.0-47.0); Hemoglobin 12.9 g/dl (12.0-16.0); Mean Corpuscular Hemoglobin 27.6 pg (25.0-34.0); Mean Corpuscular Hgb Conc 33.7 g/dL (32.0-36.0); Mean Corpuscular Volume 81.8 fL (80.0-100.0); Mean Platelet Volume 9.3 fL (9.4-12.4); Platelet Count 395 K/uL (130-400); RDW Coefficient of Variation 14.2 % (11.5-14.5); RDW Standard Deviation 41.9 fL (36.4-46.3); Red Blood Count 4.68 M/uL (4.20-5.40); White Blood Count 7.39 K/ul (4.8-10.8)
[2022-06-15 08:13] LABS: BUN Creatinine Ratio 17.2 (10-20); Calcium 8.5 mg/dl (8.5-10.1); Creatinine Clr Calc Pharmacy 160.4 ml/min; Est GFR (African American) 137.8 ml/min; Est GFR (Non-African American) 118.9 ml/min; Potassium 3.8 mmol/L (3.5-5.1)
[2022-06-15 08:15] LABS: Basophils # (auto) 0.01 K/uL (0-0.2); Basophils % (auto) 0.1 %; Immature Granulocytes # (auto) 0.05 K/uL (0.01-0.20); Immature Granulocytes % (auto) 0.7 %; Lymphocytes # (auto) 2.05 K/uL (1.2-3.4); Lymphocytes % (auto) 27.7 %; Monocytes # (auto) 0.41 K/uL (0.11-0.59); Monocytes % (auto) 5.5 %; Neutrophils # (auto) 4.87 K/uL (1.40-6.50)
[2022-06-15] MEDS: AZITHROMYCIN 250 MG TAB PO SCH (08:37)
[2022-06-15] MEDS: predniSONE 20 MG TAB PO SCH (08:37)
[2022-06-15] MEDS: PANTOprazole 40 MG TAB PO SCH (08:37)
--- NOTE | 2022-06-15 10:03 | Pulmonology Progress Note ---
Date of Service June 15, 2022 Assessment & Plan (1) Bronchiolitis: (2) Multifocal pneumonia: (3) Viral illness: (4) Abnormal CT scan, chest: (5) Non-productive cough: (6) Acute dyspnea: (7) Acute bronchitis: Plan 32-year-old female with no prior history of lung disease presenting to the hospital due to shortness of breath. Respiratory viral panel positive for coronavirus HKU1 and human metapneumovirus. Patient with viral bronchiolitis. Cannot rule out superimposed bacterial infection. Recommend a 5-day course of azithromycin. Urine Legionella antigen pending. Complete 5-day course of prednisone and 40 mg daily. Protonix for the time that she is on prednisone. Send home with high-dose ICS/LABA to be used for the next 2 weeks. Stable for discharge home. Pulmonary signing off. Please call with questions. Thank you for the consult. Admission and Anticipated Discharge Date Admission Date: June 13, 2022 Subjective Patient notes breathing has improved. Cough is still persistent. Has a mild headache today. No fevers, chills or night sweats. Review of Systems Review of Systems: All systems reviewed & are unremarkable except as noted in HPI & below Physical Exam Physical Exam: Constitutional: Obese appearing female. Appears tired. No distress. Eyes: Pupils are equal round and reactive to light. Conjunctivae are normal. Anicteric sclera. Ears nose, mouth and throat: Mallampati class 2. Normal posterior oropharynx. Uvula is midline. Neck: Trachea is midline. Visual inspection is normal. Respiratory: Coarse rhonchi bilaterally. No wheeze. No tachypnea. Cardiovascular: Regular rate and rhythm. No murmurs. No edema. Gastrointestinal: Normal bowel sounds, soft, nontender and nondistended. No hepatosplenomegaly noted. Musculoskeletal: No cyanosis. Patient is able to move all extremities. Strength is 5 out of 5 in the upper and lower extremities. Skin: No rashes, warm dry and intact. Neurologic: No obvious focal neurological deficits seen. Psychiatric: Alert and oriented x3 with a euthymic affect. Results & Data Results & Data ([facility]) Vital Signs (Past 12 Hours) Vital Signs Temp Pulse Pulse Resp BP BP Pulse Ox 06/15/22 07:54 36.6 C 74 18 123/76 98 06/15/22 07:20 76 06/15/22 06:57 91 H 18 95 06/15/22 03:00 36.8 C 98 H 16 104/68 94 06/14/22 22:06 107 H 06/14/22 22:00 06/14/22 22:22 36.6 C 106 H 18 168/99 H 97 O2 Del Method 06/15/22 07:54 Room Air 06/15/22 07:20 06/15/22 06:57 Room Air 06/15/22 03:00 Room Air 06/14/22 22:06 06/14/22 22:00 Room Air 06/14/22 22:22 Room Air PG Care Time/CCT Total # of Minutes Spent Total Time Spent with Patient: Total time spent is greater than 50% in coordination of care (as documented) at patient's floor/unit and/or counseling patient: Coding Level of Care Code 59493 SUB INP/OBS CARE 04/30MIN Diagnoses Bronchiolitis J21.9 Multifocal pneumonia J18.9 Viral illness B34.[address] scan, chest R93.89 Non-productive cough R05.8 Acute dyspnea R06.00 Acute bronchitis J20.9
--- NOTE | 2022-06-15 12:41 | Discharge Summary ---
Date of Service June 15, 2022 Admission HPI Per Admitting Provider Sasha is a 32 year old female with a PMH significant for anxiety, migraines, and genital herpes simplex who presented to the [facility] ED on 06/13/22 with a chief complaint of worsening SOB and DOLL. Per chart review, the patient was previously seen in the [facility] ED on 06/11/22 for flu-like symptoms and cough. Her workup revealed a left-sided pneumonia and she was discharged home on Cefdinir, doxycycline, and albuterol. The patient returned today as her symptoms have progressed, especially her DOLL. In the ED today the patient was found to be afebrile, hypertensive at 170/105, and stable on RA. Labs were remarkable for a CBC WNL, stable Cr at 0.68, potassium of 3.3, calcium of 8.4, otherwise stable electrolytes, LFT's WNL, high sensitivity trop of 3.5, and full respiratory biofire positive for Coronavirus HKU1 and Human Metapneumovirus. Chest xray today was read as "1. Multifocal airspace consolidation is typical for pneumonia. This has modestly worsened as compared to 06/11/2022. 2. Suspect a small left pleural effusion.". CTA of the chest with PE protocol was read as "1. There is no evidence of pulmonary embolus in the main, lobar, or segmental pulmonary arteries. 2. Multifocal airspace consolidation is seen throughout both lungs, left significantly greater than right. The appearance is typical for multifocal pneumonia. Clinical correlation will be required and radiographic follow-up to resolution is recommended. 3. Trace pleural effusions. 4. Mildly enlarged mediastinal and hilar lymph nodes are likely reactive. 5. Additional findings as above.". The ED staff spoke with Pulmonology who recommended admi ssion for supportive care and recommended starting the patient on Cefepime and Azithromycin. At the time of the exam the patient was lying in bed in no acute distress, still stable on RA. She states that her symptoms started on 06/08/22 with fever, chills, congestion, and a non-productive cough. After starting the Doxycycline and Cefdinir on discharge she felt as though she was improving for about 24 hours. However, last night her symptoms started to progress with worsening congestion, cough, and SOB. She denies chest pain, abdominal pain, nausea, vomiting, diarrhea, dysuria, hematuria, LE swelling, and recent trauma. She has not had to use her Valtrex in approximately 2-3 weeks. Please refer to Dr. Rodriguez's attestation for any changes to the treatment plan Admission Exam Per Admitting Provider Physical Exam: General:In no acute distress, stated age, obese, ill-appearing but non-toxic HEENT:Normocephalic, atraumatic, no scleral icterus, pupils around round, symmetrical, and reactive to light, increased pressure with palpation of the frontal and maxillary sinuses, moist mucus membranes, trachea midline, no thyromegaly Chest/Pulm:No respiratory distress, symmetrical chest expansion, scattered rhonchi and expiratory wheezing trhroughout Cardiac:RRR, no murmurs noted Abdomen:Negative for ascites and bruising, normoactive bowel sounds, soft, non-tender to palpation throughout Musculoskeletal:Symmetrical and without signs of acute trauma, upper and lower extremities with full ROM, no atrophy, spasticity, or flaccidity Extremities:Radial, dorsalis pedis, and posterior tibial pulses are intact and symmetrical, no edema noted in the BL LE's Skin:Warm, dry, no rashes , lesions, or scars noted Neuro:Alert and oriented to person, place, month, year, and president, no focal defects, no tremors noted Psych:No acute distress, calm and cooperative during the exam Principal Diagnosis Multifocal Pneumonia vs. Broncholitis Discharge Exam Constitutional WD/WN, vitals as above Eyes Anicteric sclera ENMT Moist mucous membranes Respiratory Scattered rhonchi, no wheezes. +Cough. No conversational dyspnea Cardiovascular RRR, no murmur, no edema Gastrointestinal (Abdomen) normal bowel sounds, soft, nontender, no hepatosplenomegaly Skin no rashes, warm and dry Psychiatric A+Ox3, euthymic affect Discharge Data Allergies Allergy/AdvReac Type Severity Reaction Status Date / Time blueberry Allergy Intermediate HIVES Verified 06/11/22 19:42 Pertussis Vaccines AdvReac Intermediate "high Verified 06/11/22 19:42 fever" Consultations 06/13/22 14:45 ED Decision to Admit Stat 06/13/22 15:19 Consult Pulmonology Routine Ordered Studies 06/13/22 13:08 CT for pulmonary embolism PE [CT angio chest PE protocol] Stat Chest X-Ray 06/13/22 12:04 SINGLE VIEW CHEST CLINICAL HISTORY: Dyspnea. FINDINGS: An AP, portable, upright chest radiograph is compared to study dated 06/11/2022. The cardiomediastinal silhouette is unremarkable. There is multifocal airspace consolidation throughout the left lung, greatest in the mid to lower lung. Mild patchy opacities are also seen in the right lung. A small left pleural effusion is suspected. No pneumothorax is seen. The bony thorax is grossly intact. IMPRESSION: 1. Multifocal airspace consolidation is typical for pneumonia. This has modestly worsened as compared to 06/11/2022. 2. Suspect a small left pleural effusion. ACT 112: Negative or not required by law. Electronically signed by: Dmitri Mathis M.D. 06/13/2022 12:21 PM Chest CTA 06/13/22 13:08 CT ANGIOGRAM OF THE CHEST CLINICAL HISTORY: Dyspnea. Multifocal pneumonia. COMPARISON STUDY: Chest x-ray dated 06/13/2022. TECHNIQUE: Following the IV administration of 110 cc of Optiray 320, CT angiogram of the chest was performed from the upper abdomen to the thoracic inlet utilizing the pulmonary embolus protocol. Images are reviewed in the axial, sagittal, and coronal planes. 3-D MIPS images are created and assessed. IV contrast was administered without complication. A dose lowering technique was utilized adhering to the principles of ALARA. CT DOSE: 804.81 mGy.cm FINDINGS: Thyroid: Imaged portions of the thyroid gland are normal in size and attenuation. Thoracic aorta: The thoracic aorta is normal in caliber and demonstrates standard 3-vessel arch anatomy. No dissection is seen. Pulmonary vasculature: The pulmonary trunk is normal in caliber. There are no filling defects identified in main, lobar, or segmental pulmonary branches to suggest pulmonary embolus. Heart: The heart is normal in size and without pericardial effusion. Lungs and pleural spaces: There is multifocal airspace consolidation throughout both lungs, left significantly greater than right. Trace pleural effusions are identified. The trachea and central airways are clear. There is no pneumothorax. Mediastinum: There are numerous mildly enlarged mediastinal lymph nodes, measuring up to 16 mm in short axis. Janet: Enlarged hilar nodes measure up to 17 mm in short axis. Axillae: There is no axillary lymphadenopathy. Upper abdomen: Partially visualized upper abdominal viscera is within normal limits. Skeletal structures: No lytic or blastic bony lesions are seen. IMPRESSION: 1. There is no evidence of pulmonary embolus in the main, lobar, or segmental pulmonary arteries. 2. Multifocal airspace consolidation is seen throughout both lungs, left significantly greater than right. The appearance is typical for multifocal pneumonia. Clinical correlation will be required and radiographic follow-up to resolution is recommended. 3. Trace pleural effusions. 4. Mildly enlarged mediastinal and hilar lymph nodes are likely reactive. 5. Additional findings as above. ACT 112: Negative or not required by law. Electronically signed by: Dmitri Mathis M.D. 06/13/2022 2:30 PM 06/15/22 06/15/22 Range/Units 07:07 07:07 WBC 7.39 (4.8-10.8) K/ul RBC 4.68 (4.20-5.40) M/uL Hgb 12.9 (12.0-16.0) g/dl Hct 38.3 (37.0-47.0) % MCV 81.8 (80.0-100.0) fL MCH 27.6 (25.0-34.0) pg MCHC 33.7 (32.0-36.0) g/dL RDW Std Deviation 41.9 (36.4-46.3) fL RDW Coeff of Marisol 14.2 (11.5-14.5) % Plt Count 395 (130-400) K/uL MPV 9.3 L (9.4-12.4) fL Immature Gran % (Auto) 0.7 % Neut % (Auto) 66.0 % Lymph % (Auto) 27.7 % [place] % (Auto) 5.5 % Eos % (Auto) 0.0 % Baso % (Auto) 0.1 % Neut # (Auto) 4.87 (1.40-6.50) K/uL Lymph # (Auto) 2.05 (1.2-3.4) K/uL [place] # (Auto) 0.41 (0.11-0.59) K/uL Eos # (Auto) 0.00 (0-0.50) K/uL Baso # (Auto) 0.01 (0-0.2) K/uL Immature Gran # (Auto) 0.05 (0.01-0.20) K/uL Sodium 139 (136-145) mmol/L Potassium 3.8 (3.5-5.1) mmol/L Chloride 106 (98-107) mmol/L Carbon Dioxide 26 (21-32) mmol/L Anion Gap 7 (3-11) BUN 11 (6-23) mg/dl Creatinine 0.64 (0.6-1.2) mg/dl Est Cr Clr Drug Dosing 160.4 ml/min Est GFR ( Amer) 137.8 ml/min Est GFR (Non-Af Amer) 118.9 ml/min BUN/Creatinine Ratio 17.2 (10-20) Glucose 110 H (70-99(Fasting)) mg/dl Calcium 8.5 (8.5-10.1) mg/dl Hospital Course (1) Multifocal pneumonia: (2) Viral illness: (3) Abnormal CT scan, chest: (4) Non-productive cough: (5) Acute dyspnea: (6) Acute bronchitis: Plan Sasha is a 32 year-old female with no prior history of lung disease who presented to the hospital after progressive URI symptoms of SOB and DOLL that did not respond to two days of Cefdinir and Doxycycline. Acute respiratory failure secondary to Multifocal viral pneumonia Patient presented to the ED after failing outpatient antibiotics several days prior, has no prior history of lung disease. She tested positive for Coronavirus HKU1 and Human Metapneumovirus, CT of chest suggestive of multifocal pneumonia without PE's. Pulmonology consulted -- cannot rule out secondary bacterial infection. Received Cefepime, Azithromycin. Started on course of steroids, scheduled Duonebs, percussive vest therapy. Oxygen saturation closely monitored, no supplemental oxygen needed. On day of discharge, patient had improvement of symptoms and no dyspnea on exertion. She was discharged with remainder of 5 day course of azithromycin and prednisone (+protonix while on steroid) as well as high dose ICS/LABA to use daily for 2 weeks. Hypokalemia Potassium noted to be 3.3 on admission, improved to normal range after supplementation. -Repeat BMP tomorrow a.m. Remainder of chronic medical conditions were treated with continuing home medications. Total Time Total Time Spent Total Time Spent (In Minutes): . Discharge Plan Discharge Items Patient Disposition: Home - Self-Care Reason For Visit: SOB Discharge Diagnosis: Multifocal Pneumonia Activity: Per Instructions section Non-emergency contact: Primary Care Provider Call non-emergency contact if: you have any medication questions, your symptoms worsen and your temperature is above 101.5 Follow-up/Referrals: Hien Machuca CRNP [Primary Care Provider] - (Please make a hospital discharge follow up appointment for within 1 week of discharge) Diet: Regular Addtl Attending Provider Instructions: You were admitted to the hospital for shortness of breath and were diagnosed with multifocal pneumonia as well as human metapneumovirus and coronavirus HKU1. You were treated with antibiotics, steroids, and breathing treatments. A discharge summary will be sent to your primary care physician to ensure continuity of care. Follow-up appointments: Make a follow-up appointment with your PCP within the next week. It is very important that you follow up with them shortly after discharge from the hospital. New Medications: Your medication list has been reviewed and reconciled upon discharge to ensure accuracy and continuity of care. -Azithromycin, 1 tablet daily for 3 more days (start tomorrow) -Prednisone, 2 tablets daily for 3 more days (start tomorrow) -Protonix, 1 tablet daily for 3 more days. This is a medication to reduce stomach acid while taking your steroid. (start tomorrow) -Advair HFA inhaler, 2 puffs twice daily for 14 days (start ) These medications were sent to your pharmacy. CALL 911 OR GO TO THE EMERGENCY DEPARTMENT if you experience any of the following: Sudden, severe abdominal pain or nausea/vomiting Severe chest pain, or chest pain that radiates (moves) to your jaw or arm Sudden, severe shortness of breath or difficulty breathing Thank you for allowing us to participate in your care. Pending Studies at Discharge: No Stand-Alone Forms: My [facility], Smoking Cessation Medications and DC Order Prescriptions: New azithromycin 250 mg Tablet 250 mg PO QAM 3 Days Qty: 3 0RF prednisone 20 mg Tablet 40 mg PO DAILY 3 Days Qty: 6 0RF pantoprazole 40 mg Tablet,Delayed Release (Dr/Ec) 40 mg PO QAM 3 Days Qty: 3 0RF Advair HFA 230-21 mcg/actuation HFA aerosol inhaler 2 puff inhalation BID 14 Days Qty: 12 0RF Continued citalopram 20 mg tablet 20 mg PO HS zolmitriptan [Zomig] 2.5 mg tablet 2.5 mg PO Q2H MDD 4 DOSES/24 HOURS PRN (Reason: Migraine Headache) Rx Instructions: do not exceed 4 doses per 24 hrs buspirone 15 mg Tablet 15 mg PO HS Rx Instructions: PER PT "CAN TAKE UP TO TID, IF NEEDED". Advil PM 200-38 mg Tablet 1 tab PO DIRECTED PRN (Reason: Sleep) valacyclovir 500 mg tablet 500 mg PO DIRECTED PRN (Reason: FLARE UPS) albuterol sulfate 90 mcg/actuation HFA aerosol inhaler 2 inh inhalation Q6H Qty: 18 2RF Discontinued cefdinir 300 mg capsule 300 mg PO BID 10 Days Qty: 20 0RF doxycycline hyclate 100 mg tablet 100 mg PO BID 10 Days Qty: 20 0RF Discharge Orders: Discharge Order (Routine); Ordered 06/15/22 Ordered By: Amy Burris Admission Data Admit Date/Time: 06/13/22 14:53 Attending Provider: Clementine Mckinney Admit Provider: Dave Rodriguez Primary Care Provider: Hien Machuca Other Providers: Dave Rodriguez ; Dougie Mojica Other Interventions: Discharge Summary Assessment (RN) Last Done: 06/15/22 13:55 Supervising Physician Co-Signing Physician Notes Resident Physician Supervision Note: I independently interviewed and examined the patient and verified the soto history and physical, reviewed labs and image studies and agree with resident findings and care plan.
== END 2022-06-15 15:12 | disposition home or self-care (01) | DRG 194 ==
LOC: ED 11:59 → INTOOBSV 14:53 → 2N 14:53 → SUATTDRO 14:53 → 2N 17:28

== ENCOUNTER 2023-02-25 12:29 | Inpatient (IN) ==
[2023-02-25] MEDS ORDERED: OXYTOCIN 30 UNITS/NSS 30 UNITS/500 ML BAG IV PRN ×2 (13:12)
[2023-02-25] MEDS ORDERED: LIDOCAINE 1% LOCAL 20 ML VIAL INFIL PRN (13:12)
[2023-02-25 14:19] LABS: Hematocrit (blood only) 33.2 % (37.0-47.0); Hemoglobin 11.1 g/dl (12.0-16.0); Mean Corpuscular Hemoglobin 28.5 pg (25.0-34.0); Mean Corpuscular Hgb Conc 33.4 g/dL (32.0-36.0); Mean Corpuscular Volume 85.1 fL (80.0-100.0); Mean Platelet Volume 10.5 fL (9.4-12.4); Platelet Count 381 K/uL (130-400); RDW Coefficient of Variation 13.8 % (11.5-14.5); RDW Standard Deviation 42.4 fL (36.4-46.3)
[2023-02-25 14:34] LABS: Alanine Aminotransferase 14 U/L (7-52); Albumin Level 3.3 gm/dl (3.4-5.0); Alkaline Phosphatase 121 U/L (34-104); Aspartate Aminotransferase 17 U/L (13-39); Bilirubin Direct 0.1 mg/dl (0-0.2); Bilirubin,Total 0.4 mg/dl (0.2-1.0); Creatinine Clr Calc Pharmacy 216.6 ml/min; Est GFR (African American) > 150.0 ml/min; Est GFR (Non-African American) 129.8 ml/min; Total Protein 6.6 gm/dl (6.0-8.3)
--- NOTE | 2023-02-25 14:47 | History & Physical Report ---
Date of Service February 25, 2023 Assessment & Plan (1) Encounter for induction of labor: Plan Admit to L&D Induction of labor because of hx of chronic HTN at 38 0/7 weeks gestation pitocin arom when appropriate epidural when requested monitor tracing, currently cat 1 Admission and Anticipated Discharge Date Admission Date: February 25, 2023 History of Present Illness Chief Complaint: IOL Primary Care Provider: Hien Machuca 33 yo at 38w0d admitted for IOL for HTN. History of chronic HTN, admitted from office for elevated BP reading. Not hypertensive at time of admission Denies BYERS, CP, SOB, N/V/D, LE pain. +fm, +ctx, -VB/VD, -LOF GBS neg, RH- Allergies Allergy/AdvReac Type Severity Reaction Status Date / Time blueberry Allergy Intermediate HIVES Verified 02/25/23 11:23 Pertussis Vaccines AdvReac Intermediate "high Verified 02/25/23 11:23 fever" Home Medications Medication Instructions Recorded Confirmed Type citalopram 20 mg tablet 20 mg PO HS 12/08/19 02/25/23 History diphenhydramine HCl 25 mg tablet 50 mg PO HS 07/23/22 02/25/23 History (Benadryl Allergy) prenat.vits,omi,bje-voie-siksl 1 tab PO DAILY 07/28/22 02/25/23 History buspirone 15 mg tablet 15 mg PO DAILY 09/17/22 02/25/23 History ondansetron HCl 4 mg tablet 4 mg PO Q8 PRN Nausea #10 tabs 01/15/23 02/25/23 Rx Zomig 2.5 mg nasal spray 2.5 mg intranasal Q2H PRN headache 02/23/23 02/25/23 Rx (zolmitriptan) 30 days #6 ea aspirin 81 mg capsule 81 mg PO DAILY 02/25/23 02/25/23 History valacyclovir 500 mg tablet 500 mg PO DAILY 02/25/23 02/25/23 History Patient History Medical History (Updated 02/25/23 @ 14:51 by Timothy Villatoro DO) Bronchiolitis Acute dyspnea Abnormal CT scan, chest Hypokalemia Coronavirus infection Human metapneumovirus (hMPV) pneumonia Multifocal pneumonia at beginning of this ; hospitalized for 3 days History of varicella GERD (gastroesophageal reflux disease) Depression with anxiety Migraine no meds Surgical History (Updated 09/05/22 @ 09:51 by Lorene Tejeda) Status post colposcopy S/P tonsillectomy H/O wisdom tooth extraction at age 17 Family History (Updated 07/28/22 @ 13:12 by Jennifer Flores) Sister Breast cancer Heart murmur Grandfather (Paternal) Hypertension Mother Hypothyroidism History of migraine headaches Other No pertinent family history Denies family history of Ovarian cancer Colorectal cancer Social History (Updated 07/28/22 @ 13:14 by Jennifer Flores) Smoking Status: Never smoker Do You Dip or Chew Tobacco: No; Hx Alcohol Use: No Hx Substance Use: No Preferred Language: Cameroonian Communication Ability: Effective Banquet Steward Required: No Beliefs That Will Affect Care: None marital status: marital status details: Radu Casiano (31) [phone] Current Living Situation: Spouse Current Living Situation Comment: lives with spouse, 2 children and another family, dogs, 6 cats-sp changing current occupational status: unemployed current occupation: homemaker Feels Safe at Home: Yes Safety Concerns: Feels Safe At This Time Assistive Devices: None Review of Systems reviewed, per HPI Physical Exam Physical Exam: General: patient resting comfortably, NAD, non-toxic in appearance, answers questions appropriately. Skin: warm, dry, intact HEENT: NC/AT, anicteric sclera, conjunctiva without injection, moist mucus membranes Heart: +S1/S2, regular, no m/r/g Lungs: equal air entry bilaterally, no rales/rhonchi/wheezes Abd: +BS, soft, NT/ND, gravid uterus Cervical: 2.5|50|-1| Ext: warm, no clubbing/cyanosis or edema Neuro: speech intact, no facial droop, moving all extremities on command. : FHR baseline 140, moderate variability, accelerations present, dece lerations absent Results & Data Vital Signs (Past 12 Hours) Vital Signs Temp Pulse Resp BP 02/25/23 13:14 37.0 C 02/25/23 13:13 93 H 131/80 02/25/23 13:08 20 02/25/23 13:08 37.0 C 02/25/23 13:02 100 H 116/63 02/25/23 12:52 90 18 122/70 Supervising Physician Co-Signing Physician Notes Resident Physician Supervision Note: I interviewed and examined the patient. Discussed with Dr. Villatoro and agree with findings and plan as documented in the note. Any exceptions or clarifications are listed here: [None] Documented By: Connie Best MD, FACOG Resident Activity Tracking Resident Involvement: Resident Care Provided Care Provided: Adult Hospital Medicine
[2023-02-25 14:53] LABS: Creatinine Urine Random 145.7 mg/dl; Protein Creatinine Ratio Urine 0.2 (0-0.2); Total Protein Urine Random 22.4 mg/dl (0-11.9)
[2023-02-25] MEDS: LACTATED RINGER'S 1,000 ML IV PRN ×3 (16:02→21:55)
[2023-02-25] MEDS ORDERED: fentaNYL citrate PF 100 MCG/2 ML VIAL ONE (18:32)
[2023-02-25] MEDS ORDERED: fentANYL 2 MCG/ML BUPIVacaine 0.125%-NSS 100ML BAG ONE (18:33)
[2023-02-25] MEDS ORDERED: SODIUM CHLORIDE 0.9% PF INJ 10 ML VIAL ONE (18:33)
[2023-02-25] MEDS ORDERED: BUPIVACAINE 0.25% PF 30 ML VIAL ONE (18:33)
[2023-02-25] MEDS ORDERED: LIDOCAINE 2%/EPINEPHRINE 1:200,000 20 ML PF ONE (18:33)
[2023-02-25] MEDS ORDERED: ePHEDrine sulfate 50 MG/ML AMP ONE (18:33)
[2023-02-25] MEDS ORDERED: fentaNYL citrate PF 100 MCG/2 ML VIAL IV PRN (18:42)
[2023-02-25] MEDS ORDERED: NALOXONE HCL 1 MG in SODIUM CHLORIDE 0.9% 1,000 ML IV PRN (18:42)
[2023-02-25] MEDS ORDERED: NALBUPHINE HCL 5 MG in SYRINGE 0 ML IV PRN (18:42)
[2023-02-25] MEDS ORDERED: fentaNYL citrate PF 100 MCG/2 ML VIAL EPI PRN (18:42)
[2023-02-25] MEDS ORDERED: diphenhydrAMINE 50 MG/ML VIAL IV PRN (18:42)
[2023-02-25] MEDS ORDERED: fentaNYL citrate PF 100 MCG/2 ML VIAL EPI STA (18:42)
[2023-02-25] MEDS ORDERED: BUPIVACAINE 0.25% PF 30 ML VIAL EPI PRN (18:42)
[2023-02-25] MEDS ORDERED: SODIUM CHLORIDE 0.9% PF INJ 10 ML VIAL EPI PRN (18:42)
[2023-02-25] MEDS ORDERED: ROPIVACAINE 0.5% PF 5 MG/ML 20 ML VIAL EPI PRN (18:42)
[2023-02-25] MEDS ORDERED: fentANYL 2 MCG/ML BUPIVacaine 0.125%-NSS 100ML BAG EPI PRN (18:42)
[2023-02-25] MEDS ORDERED: ONDANSETRON INJ 2 MG/ML 2 ML VIAL IV PRN (18:42)
[2023-02-25] MEDS ORDERED: NALOXONE HCL 0.4 MG/1 ML VIAL/CARP IV PRN (18:42)
[2023-02-25] MEDS ORDERED: ePHEDrine sulfate 50 MG/ML AMP IV PRN (18:42)
[2023-02-25] MEDS ORDERED: BUPIVACAINE 0.25% PF 30 ML VIAL EPI STA (18:42)
[2023-02-25] MEDS ORDERED: LIDOCAINE 2% MPF LOCAL 5 ML VIAL EPI PRN (18:42)
[2023-02-25] MEDS ORDERED: SODIUM CHLORIDE 0.9% PF INJ 10 ML VIAL EPI STA (18:42)
[2023-02-25] MEDS ORDERED: LIDOCAINE 2%/EPINEPHRINE 1:200,000 20 ML PF EPI STA (18:42)
--- NOTE | 2023-02-25 18:42 | Anesthesiology Consultation ---
Date of Service February 25, 2023 Assessment & Plan (1) Encounter for pre-operative examination: Chart Review Chart Review: Patient NOT seen in Pre Admission Testing and Acceptable Risk for Labor Epidural Consults Requested none History Height/Weight Height: 5 ft 2.75 in Weight: 126.099 kg Allergies Allergy/AdvReac Type Severity Reaction Status Date / Time blueberry Allergy Intermediate HIVES Verified 02/25/23 11:23 Pertussis Vaccines AdvReac Intermediate "high Verified 02/25/23 11:23 fever" Medications Home Medications Medication Instructions Recorded Confirmed Last Taken citalopram 20 mg tablet 20 mg PO HS 12/08/19 02/25/23 02/24/23 21:30 diphenhydramine HCl 25 mg tablet 50 mg PO HS 07/23/22 02/25/23 02/24/23 21:30 (Benadryl Allergy) prenat.vits,omi,[id number] 1 tab PO DAILY 07/28/22 02/25/23 02/24/23 21:30 buspirone 15 mg tablet 15 mg PO DAILY 09/17/22 02/25/23 02/24/23 21:30 ondansetron HCl 4 mg tablet 4 mg PO Q8 PRN Nausea #10 tabs 01/15/23 02/25/23 02/23/23 08:30 Zomig 2.5 mg nasal spray 2.5 mg intranasal Q2H PRN headache 02/23/23 02/25/23 Unknown (zolmitriptan) 30 days #6 ea aspirin 81 mg capsule 81 mg PO DAILY 02/25/23 02/25/23 02/24/23 21:30 valacyclovir 500 mg tablet 500 mg PO DAILY 02/25/23 02/25/23 02/24/23 09:00 Active Medications Generic Name Dose Route Start Last Admin Trade Name Freq PRN Reason Stop Dose Admin Oxytocin 30 units in 500 mls @ 5 mls/hr 02/25/23 13:12 02/25/23 17:30 Pitocin 30 Units/Nss IV 02/27/23 13:11 0.3 units/hr .Q24H PRN 5 mls/hr Labor Induction/Augmentation Titration Protocol 0.3 UNITS/HR Lactated Ringer's 1,000 mls @ 125 mls/hr 02/25/23 13:12 02/25/23 16:02 Lr IV 02/27/23 13:11 125 mls/hr .Q8H PRN Administration L&D Protocol Protocol Past Medical History Medical History Bronchiolitis Acute dyspnea Abnormal CT scan, chest Hypokalemia Coronavirus infection Human metapneumovirus (hMPV) pneumonia Multifocal pneumonia at beginning of this ; hospitalized for 3 days History of varicella GERD (gastroesophageal reflux disease) Depression with anxiety Migraine no meds Past Family History Family History Sister Breast cancer Heart murmur Grandfather (Paternal) Hypertension Mother Hypothyroidism History of migraine headaches Other No pertinent family history Denies family history of Ovarian cancer Colorectal cancer Past Surgical History Surgical History Status post colposcopy S/P tonsillectomy H/O wisdom tooth extraction at age 17 Social History Smoking Status: Never smoker Do You Dip or Chew Tobacco: No Hx Alcohol Use: No alcohol intake frequency: holidays/special occasions only Hx Substance Use: No substance use type: does not use Physical Exam Vital Signs Last Vital Signs Temp 98.6 F 02/25/23 13:14 Pulse 98 H 02/25/23 18:36 Resp 20 02/25/23 13:14 BP 131/78 02/25/23 18:29 Pulse Ox 99 02/25/23 18:36 Testing Laboratory Results 02/25/23 14:00 02/25/23 14:00 Blood Type O Positive 02/25/23 14:00 Antibody Screen NEGATIVE 02/25/23 14:00
[2023-02-25] MEDS ORDERED: NURSING L&D Epidural Breakthrough Pain Update ONE (23:23)
--- NOTE | 2023-02-25 23:26 | Anesthesia Procedure Note ---
Date of Service February 25, 2023 Anesthesia Epidural Re-Dose Vital Signs Temp Pulse Resp BP Pulse Ox 98.2 F 114 H 18 123/73 96 02/25/23 23:07 02/25/23 23:21 02/25/23 23:07 02/25/23 23:18 02/25/23 23:21 Notes Pain Intensity: 5 Dilatation (cm): 4.0 Effacement (%): 90 Called by nursing to evaluate epidural as the patient is having increased pain. The epidural was re-dosed with the following medications (all medications via epidural route) after negative aspiration of the epidural catheter for CSF/HEME. 0.25% Bupivacaine (4ml) with 100 mcg Fentanyl After Epidural Re-Dose Mental Status: alert / awake / arousable Pain: improving with treatment Airway Patency, RR, SpO2: stable & adequate BP & HR: stable & adequate
[2023-02-26] MEDS ORDERED: BENZOCAINE 20% SPRY 85 APPLN/85 GM CAN EXT PRN (01:15)
[2023-02-26] MEDS ORDERED: DIPHTHERIA/TETANUS/PERTUSSIS Vaccine (Tdap, Age 7+yrs) 0.5mL SYR/VL IM ONE (01:15)
[2023-02-26] MEDS ORDERED: oxyCODONE/ACETAMINOPHEN 5mg/325mg TAB PO PRN (01:15)
[2023-02-26] MEDS ORDERED: bisacodyL 10 MG SUPP PR PRN (01:15)
[2023-02-26] MEDS ORDERED: HYDROCORTISONE ACETATE 25 MG SUPP PR PRN (01:15)
[2023-02-26] MEDS ORDERED: ACETAMINOPHEN 325 MG TAB PO PRN (01:15)
[2023-02-26] MEDS ORDERED: OXYTOCIN 30 UNITS/NSS 30 UNITS/500 ML BAG IV PRN (01:15)
--- NOTE | 2023-02-26 01:21 | Delivery Summary ---
Vaginal Delivery Summary Date of Service February 26, 2023 Vaginal Delivery Summary and 1st Degree LAC Patient is a 33-year-old 3 para 2-0-0-2 female EDC of 03/11/2023 who presents for induction of labor because of chronic hypertension diagnosis and elevated blood pressures in the office. [facility] labs and blood pressures upon arrival in labor delivery are normal. She was already having mild contractions every 5 minutes and her labor was augmented with Pitocin. Membranes were ruptured for clear fluid. She received effective epidural analgesia. She pushed through 1 contraction for delivery of a viable female . After the head delivered, the rest the infant delivered quickly. She was placed on mother's abdomen for further attention and drying. She was crying and moving all 4 limbs. After 1 minute, cord was clamped and cut. After cord blood was obtained, the placenta was expressed intact with a three-vessel cord. Bilateral superficial labial abrasions were not bleeding and therefore not repaired. A first-degree perineal laceration was repaired with 3-0 chromic in the usual fashion. bleeding was controlled with dilute Pitocin and fundal massage. Estimated blood loss is 250 cc. Mother and infant were doing well after delivery. [facility] Vaginal Delivery Charge Delivery Type Details: and 1st Degree LAC
[2023-02-26] MEDS ORDERED: Nursing to Pharmacy Communication SCH ×2 (01:30→09:30)
[2023-02-26] MEDS: MEMANTINE HCL 5 MG TAB PO SCH ×2 (01:32→09:27)
[2023-02-26] MEDS: CITALOPRAM 20 MG TAB PO SCH ×2 (01:35→21:07)
[2023-02-26] MEDS: IBUPROFEN 600 MG TAB PO PRN ×4 (01:52→19:56)
[2023-02-26] MEDS: DOCUSATE SODIUM 100 MG CAP PO SCH ×2 (08:37→20:31)
[2023-02-26] MEDS: PRENATAL VITAMIN 1 TAB PO SCH (08:37)
[2023-02-26] MEDS ORDERED: busPIRone 15 MG TAB PO SCH ×2 (09:00→21:00)
--- NOTE | 2023-02-26 12:20 | Anesthesia Procedure Note ---
Date of Service February 26, 2023 Anesthesia Post Epidural Note Vital Signs Vital Signs: Temp Pulse Resp BP Pulse Ox O2 Del Method 36.4 C L 83 16 104/69 99 Room Air 02/26/23 11:40 02/26/23 11:40 02/26/23 11:40 02/26/23 11:40 02/26/23 08:20 02/26/23 08:20 Pain Intensity Bilateral Lower Abdomen: Pain Intensity: 2 Lower Back: Pain Intensity: 4 Notes Mental Status: alert / awake / arousable and participated in evaluation Patient Amnestic to Procedure: No Nausea / Vomiting: adequately controlled Pain: adequately controlled Airway Patency, RR, SpO2: stable & adequate BP & HR: stable & adequate Hydration State: stable & adequate Neuraxial Anesthesia: was administered and sensory block resolved Anesthetic Complications: no major complications apparent and Pt Satisfied with anesthetic care Epidural: Removed without complications and With tip intact
[2023-02-27] MEDS: IBUPROFEN 600 MG TAB PO PRN (01:09)
--- NOTE | 2023-02-27 07:14 | Obstetrical Progress Note ---
Date of Service February 27, 2023 Assessment & Plan (1) state: Plan PPD#1 (>24hr) from , feeling ready for D/C home. Instruction reviewed. cHTN but not requiring meds and has been normotensive after delivery. Subjective Ambulation: ambulating normally Voiding: no voiding problems Passing Gas:: Yes Diet Tolerance:: regular diet Lochia:: Small Feeding Type:: breast feeding Physical Exam Constitutional WD/WN, vitals as above Eyes PERRL, conjunctivae normal, anicteric sclerae Neck normal visual inspection Respiratory normal respiratory effort and able to speak in complete sentences; no respiratory distress and no labored breathing Cardiovascular Rate/Rhythm: regular rate and regular rhythm Extremities: + edema Chest (Breasts) Chest: normal inspection of chest Gastrointestinal (Abdomen) Inspection/Auscultation: abdomen normal to inspection Soft, postgravid Psychiatric A+Ox3, euthymic affect Genitourinary OB Exam Abdomen: + fundal height Fundus: + firm and + relation to umbilicus (fundus just below umbilicus); not tender Results & Data Vital Signs (Past 12 Hours) Vital Signs Temp Pulse Resp BP Pulse Ox O2 Del Method 02/26/23 23:30 98.1 F 74 16 111/74 97 Room Air 02/26/23 19:30 98.1 F 87 18 112/67 98 Room Air
[2023-02-27] MEDS: DOCUSATE SODIUM 100 MG CAP PO SCH (08:14)
[2023-02-27] MEDS: PRENATAL VITAMIN 1 TAB PO SCH (08:14)
[2023-02-27 09:23] LABS: Hematocrit (blood only) 31.7 % (37.0-47.0); Hemoglobin 10.3 g/dl (12.0-16.0); Mean Corpuscular Hemoglobin 28.1 pg (25.0-34.0); Mean Corpuscular Hgb Conc 32.5 g/dL (32.0-36.0); Mean Corpuscular Volume 86.4 fL (80.0-100.0); Mean Platelet Volume 10.3 fL (9.4-12.4); Platelet Count 337 K/uL (130-400); RDW Standard Deviation 43.8 fL (36.4-46.3); Red Blood Count 3.67 M/uL (4.20-5.40); White Blood Count 14.75 K/ul (4.8-10.8)
[2023-02-27] MEDS ORDERED: MEASLES, MUMPS & RUBELLA VIRUS VACCINE (MMR) VIAL SQ ONE (09:25)
[2023-02-27] MEDS ORDERED: bisacodyL 5 MG TABEC PO SCH (20:00)
== END 2023-02-27 12:10 | disposition home or self-care (01) | DRG 807 ==
LOC: 4S1 12:29 → 4E2 02-26 03:38